=== PATIENT | female | born 1995 | race Two or more races ===

== ENCOUNTER 2016-12-01 10:18 | Emergency (ER) | payer OTHER ==
[~2016-12-01 10:18] MED LIST: /ADVA50050 IN; ALBUTEROL INFIL; EXTR500C4 PO; FLON0.05; MOTR200T44 PO; PRENTAB40 PO; SINGULAR PO
--- NOTE | 2016-12-01 11:36 | EDDOCDS ---
Nurse's Notes [facility] Name: April Miller Age: 21 yrs Sex: Female : 1995 Arrival Date: 12/01/2016 Time: 10:18 Bed Triage 3 Private MD: NO PRIMARY PHYSICIAN, . Diagnosis: Dental caries on pit and fissure surface penetrating into pulp;Dental caries on smooth surface penetrating into pulp;Dental root caries Presentation: 12/01 10:28 Presenting complaint: Patient states: that she has severe tooth decay and her fillings ms18 are falling out. Pt reports R sided mouth pain. Pt also states that she has an appointment with the dentist on 12/05/2016. Adult Sepsis Screening: The patient does not have new or worsening altered mentation. Patient's respiratory rate is less than 22. Systolic blood pressure is greater than 100. Patient has a qSOFA score of 0- Negative Sepsis Screen. Suicide/Homicide risk assessment- the patient denies having any suicidal and/or homicidal ideations and does not present with any other emotional, behavioral or mental health complaints. Status: Patient is not a mechanic field service or dependent. Transition of care: patient was not received from another setting of care. 10:28 Acuity: BENJIE Level 5 ms18 10:28 Method Of Arrival: Walkin/Carried/Asstd ms18 Triage Assessment: 10:30 General: Appears in no apparent distress, uncomfortable, Behavior is appropriate for ms18 age, cooperative, crying. Pain: Location: mouth. Pain: Pain currently is 10 out of 10 on a pain scale. HIV screening NA for this visit Offered previously. Neurological: No deficits noted. EENT: Poor dentition noted. Reports pain in mouth. Respiratory: No deficits noted. Derm: Skin is pink, warm & dry. normal. DOPER: 10:30 LMP 11/24/2016 ms18 Historical: - Allergies: no known allergies; - Home Meds: 1. albuterol sulfate 90 mcg/actuation Inhl aepb 2 puffs every 4 hours 2. Tylenol 325 mg Oral tab 1 tab every 4-6 hours 3. ibuprofen 200 mg oral tab 2 tabs as needed - PMHx: Asthma; Dental caries; - PSHx: none; - Social history: Smoking status: Patient uses tobacco products, current every day smoker. No barriers to communication noted, The patient speaks fluent Pashto. - Family history: Not pertinent. - : The pt / caregiver states he / she is not on anticoagulants. Home medication list is obtained from the patient. - Exposure Risk Screening:: None identified. Screenin:33 Screening information is obtained from the patient. Fall risk: No risks identified. ttb Assistance ADL's: requires no assistance with activities of daily living. Abuse/DV Screen: The patient / caregiver reports he/she is: not in a situation that causes fear, pain or injury. Nutritional screening: No deficits noted. Advance Directives: Currently, there is no health care proxy. home support is adequate. Assessment: 11:33 General: Appears uncomfortable, well nourished, Behavior is appropriate for age, ttb cooperative, pleasant. Neurological: Level of Consciousness is awake, alert. EENT: poor dentition . Cardiovascular: Chest pain is denied. Respiratory: No deficits noted. Airway is patent Denies cough, shortness of breath. Derm: Skin is normal. Vital Signs: 10:20 BP 127 / 83; Pulse 80; Resp 18; Temp 97.4; Pulse Ox 100% ; Weight 48.08 kg; Height 5 elp ft. 1 in. (154.94 cm); Pain 10/10; 10:20 Body Mass Index 20.03 (48.08 kg, 154.94 cm) [facility] Vitals: 10:20 Log In Time: December 01, 2016 at 10:18. [facility] ED Course: 10:19 Patient visited by Radha Kelley PCA. elp 10:19 Patient moved to Waiting elp 10:20 NO PRIMARY PHYSICIAN, . is Private Physician. elp 10:21 Patient visited by Radha Kelley PCA. elp 10:21 Patient moved to Pre RCE elp 10:29 Triage Initiated ms18 11:14 Patient moved to Triage 3 ttb 11:15 Patient visited by Crystal Dixon PCA. jb5 11:21 Steven Chávez PA is PHCP. btw 11:21 Miguel Greenfield MD is Attending Physician. btw 11:21 Patient visited by Steven Chávez PA. btw 11:26 Your, Dentist is Referral Physician. btw 11:33 The patient / caregiver is instructed regarding the plan of care and ED course. Patient ttb has correct armband on for positive identification. 11:33 No IV's were initiated during this patient's visit. No procedures done that require ttb assistance. Order Results: There are currently no results for this order. Outcome: 11:26 Discharge ordered by Provider. btw 11:33 Discharge Assessment: Patient awake, alert and oriented x 3. No cognitive and/or ttb functional deficits noted. Patient verbalized understanding of disposition instructions. Patient awake and alert. patient administered narcotics - no. The following High Risk Discharge criteria are identified: None. Discharged to home ambulatory. Condition: good Condition: stable. Discharge instructions given to patient, Instructed on discharge instructions, follow up and referral plans. medication usage, no driving heavy equipment, no drinking with medication, Demonstrated understanding of instructions, medications, dental care Pt was receptive of discharge instructions/ teaching. Prescriptions given X 3, Work note provided to patient. No special radiology studies were completed. Property :Personal belongings accompany Pt. 11:35 Patient left the ED. ttb Signatures: Crystal Dixon, HAND MICA PLATE LAYER HAND MICA PLATE LAYER jb5 Steven Chávez PA PA btRosa Miller, RN RN ttb Radha Kelley, HAND MICA PLATE LAYER HAND MICA PLATE LAYER Krystal GerberRN RN ms18 MTDJacinda
--- NOTE | 2016-12-01 11:36 | EDDOCDS ---
Physician Documentation [facility] Name: April Miller Age: 21 yrs Sex: Female : 1995 Arrival Date: 12/01/2016 Time: 10:18 Bed Triage 3 Private MD: NO PRIMARY PHYSICIAN, . Disposition: 12/01 11:31 A printed prescription was provided to the patient due to temporary technical issues btw which prevented electronic transmission. Disposition: 12/01/16 11:26 Discharged to Home/Self Care. Impression: Dental caries on pit and fissure surface penetrating into pulp, Dental caries on smooth surface penetrating into pulp, Dental root caries. - Condition is Stable. - Discharge Instructions: Dental Pain, Mhol-fi-[id number], Diet and Dental Disease. - Prescriptions for Clindamycin HCl 300 mg Oral Capsule - take 1 capsule by ORAL route every 6 hours; 40 capsule. Ultram 50 mg Oral Tablet - take 1 tablet by ORAL route every 6 hours As needed MDD: 4 tabs; 20 tablet. etodolac 200 mg Oral Capsule - take 1 capsule by ORAL route 3 times per day; 30 capsule. - Medication Reconciliation, Local Pharmacy Hours, Work Release Form - 1 day form. - Follow up: Your, Dentist; When: As previously arranged; Reason: Further diagnostic work-up, Recheck today's complaints, Continuance of care. - Problem is chronic. - Symptoms are unchanged. Historical: - Allergies: no known allergies; - Home Meds: 1. albuterol sulfate 90 mcg/actuation Inhl aepb 2 puffs every 4 hours 2. Tylenol 325 mg Oral tab 1 tab every 4-6 hours 3. ibuprofen 200 mg oral tab 2 tabs as needed - PMHx: Asthma; Dental caries; - PSHx: none; - Social history: Smoking status: Patient uses tobacco products, current every day smoker. No barriers to communication noted, The patient speaks fluent Singaporean. - Family history: Not pertinent. - : The pt / caregiver states he / she is not on anticoagulants. Home medication list is obtained from the patient. - Exposure Risk Screening:: None identified. 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 1 in. (154.94 cm); Pain 1010; 10:20 Body Mass Index 20.03 (48.08 kg, 154.94 cm) elp Signatures: Steven Chávez PA PA btw Conner, Teresa RN RN ttb Krystal Butler RN RN ms18 MTDD
--- NOTE | 2016-12-03 12:36 | EDDOCDS ---
Physician Documentation [facility] Name: April Miller Age: 21 yrs Sex: Female : 1995 Arrival Date: 12/01/2016 Time: 10:18 Bed Triage 3 Private MD: NO PRIMARY PHYSICIAN, . Disposition: 12/01 11:31 A printed prescription was provided to the patient due to temporary technical issues btw which prevented electronic transmission. Disposition: 12/01/16 11:26 Discharged to Home/Self Care. Impression: Dental caries on pit and fissure surface penetrating into pulp, Dental caries on smooth surface penetrating into pulp, Dental root caries. - Condition is Stable. - Discharge Instructions: Dental Pain, [id number], Diet and Dental Disease. - Prescriptions for Clindamycin HCl 300 mg Oral Capsule - take 1 capsule by ORAL route every 6 hours; 40 capsule. Ultram 50 mg Oral Tablet - take 1 tablet by ORAL route every 6 hours As needed MDD: 4 tabs; 20 tablet. etodolac 200 mg Oral Capsule - take 1 capsule by ORAL route 3 times per day; 30 capsule. - Medication Reconciliation, Local Pharmacy Hours, Work Release Form - 1 day form. - Follow up: Your, Dentist; When: As previously arranged; Reason: Further diagnostic work-up, Recheck today's complaints, Continuance of care. - Problem is chronic. - Symptoms are unchanged. Historical: - Allergies: no known allergies; - Home Meds: 1. albuterol sulfate 90 mcg/actuation Inhl aepb 2 puffs every 4 hours 2. Tylenol 325 mg Oral tab 1 tab every 4-6 hours 3. ibuprofen 200 mg oral tab 2 tabs as needed - PMHx: Asthma; Dental caries; - PSHx: none; - Social history: Smoking status: Patient uses tobacco products, current every day smoker. No barriers to communication noted, The patient speaks fluent East Timorese. - Family history: Not pertinent. - : The pt / caregiver states he / she is not on anticoagulants. Home medication list is obtained from the patient. - Exposure Risk Screening:: None identified. 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 1 in. (154.94 cm); Pain 10/10; 10:20 Body Mass Index 20.03 (48.08 kg, 154.94 cm) elp MDM: 11:38 Financial registration complete. mm15 11:39 [facility] Payment Agreement was scanned into [employer] and attached to record. mm15 15:16 T-Sheet-- Draft Copy was scanned into [employer] and attached to record. gb Signatures: Apple Chiu, Reg Reg gb Steven Chávez PA PA btw Conner, Teresa, RN RN ttb Angel Matthews mm15 Krystal Butler RN RN ms18 The chart was reviewed and I authenticate all verbal orders and agree with the evaluation and treatment provided.Attachments: 11:39 [facility] Payment Agreement mm15 15:16 T-Sheet-- Draft Copy gb Chart Complete MTDD
--- NOTE | 2016-12-03 12:36 | EDDOCDS ---
Nurse's Notes [facility] Name: April Miller Age: 21 yrs Sex: Female : 1995 Arrival Date: 12/01/2016 Time: 10:18 Bed Triage 3 Private MD: NO PRIMARY PHYSICIAN, . Diagnosis: Dental caries on pit and fissure surface penetrating into pulp;Dental caries on smooth surface penetrating into pulp;Dental root caries Presentation: 12/01 10:28 Presenting complaint: Patient states: that she has severe tooth decay and her fillings ms18 are falling out. Pt reports R sided mouth pain. Pt also states that she has an appointment with the dentist on 12/05/2016. Adult Sepsis Screening: The patient does not have new or worsening altered mentation. Patient's respiratory rate is less than 22. Systolic blood pressure is greater than 100. Patient has a qSOFA score of 0- Negative Sepsis Screen. Suicide/Homicide risk assessment- the patient denies having any suicidal and/or homicidal ideations and does not present with any other emotional, behavioral or mental health complaints. Status: Patient is not a environmental services associate or dependent. Transition of care: patient was not received from another setting of care. 10:28 Acuity: BENJIE Level 5 ms18 10:28 Method Of Arrival: Walkin/Carried/Asstd ms18 Triage Assessment: 10:30 General: Appears in no apparent distress, uncomfortable, Behavior is appropriate for ms18 age, cooperative, crying. Pain: Location: mouth. Pain: Pain currently is 10 out of 10 on a pain scale. HIV screening NA for this visit Offered previously. Neurological: No deficits noted. EENT: Poor dentition noted. Reports pain in mouth. Respiratory: No deficits noted. Derm: Skin is pink, warm & dry. normal. 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 albuterol sulfate 90 mcg/actuation Inhl aepb 2 puffs every 4 hours 2. Tylenol 325 mg Oral tab 1 tab every 4-6 hours 3. ibuprofen 200 mg oral tab 2 tabs as needed - PMHx: Asthma; Dental caries; - PSHx: none; - Social history: Smoking status: Patient uses tobacco products, current every day smoker. No barriers to communication noted, The patient speaks fluent Belarusian. - Family history: Not pertinent. - : The pt / caregiver states he / she is not on anticoagulants. Home medication list is obtained from the patient. - Exposure Risk Screening:: None identified. Screenin:33 Screening information is obtained from the patient. Fall risk: No risks identified. ttb Assistance ADL's: requires no assistance with activities of daily living. Abuse/DV Screen: The patient / caregiver reports he/she is: not in a situation that causes fear, pain or injury. Nutritional screening: No deficits noted. Advance Directives: Currently, there is no health care proxy. home support is adequate. Assessment: 11:33 General: Appears uncomfortable, well nourished, Behavior is appropriate for age, ttb cooperative, pleasant. Neurological: Level of Consciousness is awake, alert. EENT: poor dentition . Cardiovascular: Chest pain is denied. Respiratory: No deficits noted. Airway is patent Denies cough, shortness of breath. Derm: Skin is normal. Vital Signs: 10:20 BP 127 / 83; Pulse 80; Resp 18; Temp 97.4; Pulse Ox 100% ; Weight 48.08 kg; Height 5 elp ft. 1 in. (154.94 cm); Pain 10/10; 10:20 Body Mass Index 20.03 (48.08 kg, 154.94 cm) [facility] Vitals: 10:20 Log In Time: December 01, 2016 at 10:18. [facility] ED Course: 10:19 Patient visited by Radha Kelley PCA. elp 10:19 Patient moved to Waiting elp 10:20 NO PRIMARY PHYSICIAN, . is Private Physician. elp 10:21 Patient visited by Radha Kelley PCA. elp 10:21 Patient moved to Pre RCE elp 10:29 Triage Initiated ms18 11:14 Patient moved to Triage 3 ttb 11:15 Patient visited by Crystal Dixon PCA. jb5 11:21 Steven Chávez PA is PHCP. btw 11:21 Miguel Greenfield MD is Attending Physician. btw 11:21 Patient visited by Steven Chávez PA. btw 11:26 Your, Dentist is Referral Physician. btw 11:33 The patient / caregiver is instructed regarding the plan of care and ED course. Patient ttb has correct armband on for positive identification. 11:33 No IV's were initiated during this patient's visit. No procedures done that require ttb assistance. 11:39 [facility] Payment Agreement was scanned into [employer] and attached to record. mm15 15:16 T-Sheet-- Draft Copy was scanned into [employer] and attached to record. gb Order Results: There are currently no results for this order. Outcome: 11:26 Discharge ordered by Provider. btw 11:33 Discharge Assessment: Patient awake, alert and oriented x 3. No cognitive and/or ttb functional deficits noted. Patient verbalized understanding of disposition instructions. Patient awake and alert. patient administered narcotics - no. The following High Risk Discharge criteria are identified: None. Discharged to home ambulatory. Condition: good Condition: stable. Discharge instructions given to patient, Instructed on discharge instructions, follow up and referral plans. medication usage, no driving heavy equipment, no drinking with medication, Demonstrated understanding of instructions, medications, dental care Pt was receptive of discharge instructions/ teaching. Prescriptions given X 3, Work note provided to patient. No special radiology studies were completed. Property :Personal belongings accompany Pt. 11:35 Patient left the ED. ttb Signatures: Apple Chiu, Reg Reg gb Crystal Dixon, GUEST REQUEST RUNNER GUEST REQUEST RUNNER jb5 Steven Chávez PA PA Rosa Mo, RN RN ttb Angel Matthews mm15 Radha Kelley, GUEST REQUEST RUNNER GUEST REQUEST RUNNER Krystal Gerber RN RN ms18 Chart Complete MTDD
--- NOTE | 2016-12-03 12:36 | EDDOCDS ---
Physician Documentation [facility] Name: April Miller Age: 21 yrs Sex: Female : 1995 Arrival Date: 12/01/2016 Time: 10:18 Bed Triage 3 Private MD: NO PRIMARY PHYSICIAN, . Disposition: 12/01 11:31 A printed prescription was provided to the patient due to temporary technical issues btw which prevented electronic transmission. Disposition: 12/01/16 11:26 Discharged to Home/Self Care. Impression: Dental caries on pit and fissure surface penetrating into pulp, Dental caries on smooth surface penetrating into pulp, Dental root caries. - Condition is Stable. - Discharge Instructions: Dental Pain, Latp-aj-Odus, Diet and Dental Disease. - Prescriptions for Clindamycin HCl 300 mg Oral Capsule - take 1 capsule by ORAL route every 6 hours; 40 capsule. Ultram 50 mg Oral Tablet - take 1 tablet by ORAL route every 6 hours As needed MDD: 4 tabs; 20 tablet. etodolac 200 mg Oral Capsule - take 1 capsule by ORAL route 3 times per day; 30 capsule. - Medication Reconciliation, Local Pharmacy Hours, Work Release Form - 1 day form. - Follow up: Your, Dentist; When: As previously arranged; Reason: Further diagnostic work-up, Recheck today's complaints, Continuance of care. - Problem is chronic. - Symptoms are unchanged. Historical: - Allergies: no known allergies; - Home Meds: 1. albuterol sulfate 90 mcg/actuation Inhl aepb 2 puffs every 4 hours 2. Tylenol 325 mg Oral tab 1 tab every 4-6 hours 3. ibuprofen 200 mg oral tab 2 tabs as needed - PMHx: Asthma; Dental caries; - PSHx: none; - Social history: Smoking status: Patient uses tobacco products, current every day smoker. No barriers to communication noted, The patient speaks fluent Israeli. - Family history: Not pertinent. - : The pt / caregiver states he / she is not on anticoagulants. Home medication list is obtained from the patient. - Exposure Risk Screening:: None identified. 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 1 in. (154.94 cm); Pain 10/10; 10:20 Body Mass Index 20.03 (48.08 kg, 154.94 cm) elp MDM: 11:38 Financial registration complete. mm15 11:39 [facility] Payment Agreement was scanned into [employer] and attached to record. mm15 15:16 T-Sheet-- Draft Copy was scanned into [employer] and attached to record. gb Signatures: Apple Chiu, Reg Reg gb Steven Chávez PA PA btw Conner, Teresa, RN RN ttb Angel Matthews mm15 Krystal Butler RN RN ms18 The chart was reviewed and I authenticate all verbal orders and agree with the evaluation and treatment provided.Attachments: 11:39 [facility] Payment Agreement mm15 15:16 T-Sheet-- Draft Copy gb Chart Complete MTDD
== END 2016-12-01 11:35 | disposition home or self-care (01) ==
LOC: M ED 10:18
DX: K02.9 Dental caries, unspecified (principal); J45.909 Unspecified asthma, uncomplicated; F17.210 Nicotine dependence, cigarettes, uncomplicated; Z79.51 Long term (current) use of inhaled steroids

== ENCOUNTER → 2018-05-10 | Outpatient (CLI) | payer OTHER | LOC: M RAD 15:14 | DX: N83.11 Corpus luteum cyst of right ovary (principal); Z3A.09 9 weeks gestation of pregnancy | CPT/HCPCS: 76801 ==

== ENCOUNTER 2018-05-20 14:00 | Emergency (ER) | payer OTHER | END 2018-05-20 18:38 | disposition home or self-care (01) | LOC: M ED 14:00 | DX: K04.7 Periapical abscess without sinus (principal); F17.210 Nicotine dependence, cigarettes, uncomplicated | CPT/HCPCS: 99283 ==

== ENCOUNTER 2018-06-25 02:28 | Emergency (ER) | payer OTHER ==
[2018-06-25] MEDS: IPRATROPIUM 0.5MG/ALBUTEROL 2.5MG INH SOL UD 3ML (DUONEB)(J7620) NEB (02:58)
[2018-06-25] MEDS: methylPREDNISolone INJ 125 MG/2 ML VIAL (J2930) IM (03:10)
[2018-06-25] MEDS: predniSONE 20 MG TAB PO (03:22)
== END 2018-06-25 03:35 | disposition left against medical advice (07) ==
LOC: M ED 02:28
DX: J40 Bronchitis, not specified as acute or chronic (principal); J45.909 Unspecified asthma, uncomplicated; F41.9 Anxiety disorder, unspecified; D57.3 Sickle-cell trait; F17.210 Nicotine dependence, cigarettes, uncomplicated
CPT/HCPCS: 71045

== ENCOUNTER 2018-08-05 14:29 | Emergency (ER) | payer OTHER ==
[2018-08-05] MEDS: LIDOCAINE VISCOUS 2% SOLN 15ML UDC MT (16:24)
[2018-08-05] MEDS: CLINDAMYCIN 150 MG CAP PO (16:24)
[2018-08-05] MEDS: NORCO, ANEXSIA 5/325MG TABLET (HYDROcodone/ACETAMINOPHEN) PO (16:25)
== END 2018-08-05 16:31 | disposition home or self-care (01) ==
LOC: M ED 14:29
DX: K04.7 Periapical abscess without sinus (principal); K02.9 Dental caries, unspecified; D57.3 Sickle-cell trait; F41.9 Anxiety disorder, unspecified; J45.909 Unspecified asthma, uncomplicated; R56.9 Unspecified convulsions; Z79.899 Other long term (current) drug therapy
CPT/HCPCS: 99283

== ENCOUNTER 2018-12-12 12:50 | Emergency (ER) | payer OTHER ==
[~2018-12-12] VITALS: Ht 154.9 cm; Wt 47.7 kg
[~2018-12-12 12:50] MED LIST changes: +ALBU0.63 NEB; +ALBU83IN INH; +ALPR1TAB3; +APAP/CODEINE; +CLEO300C2 PO; +FLUO20CA19; +KETO10TAB PO; +LIDVISCBTL SSP; +NORCOTAB PO; +PRED20TA PO; +XANA1TAB2 PO
[2018-12-12 12:51] VITALS: BP 107/64
[2018-12-12] MEDS ORDERED: CLEO300C2 PO (13:11)
[2018-12-12] MEDS ORDERED: IBUP-1022 PO (13:11)
== END 2018-12-12 13:11 | disposition left against medical advice (07) ==
LOC: M ED 12:50
DX: K04.7 Periapical abscess without sinus (principal); J45.909 Unspecified asthma, uncomplicated; R56.9 Unspecified convulsions; F41.9 Anxiety disorder, unspecified; D57.3 Sickle-cell trait

== ENCOUNTER → 2018-12-19 | Outpatient (CLI) | payer OTHER ==
[~2018-12-19] MED LIST changes: +IBUP-1022 PO
--- NOTE | 2018-12-19 15:14 | REP ---
OB ULTRASOUND: 12/19/2018. Clinical history: Supervision of . Dates unknown. Findings: There is a single intrauterine gestation in variable position. Cervix is 4.4 cm long and closed. There is a fundal grade 0 placenta without previa or abruption. Amniotic fluid appears visually within normal limits. biometry: BPD 4.3 cm = 18 weeks 6 days HC 16.2 cm = 19 weeks AC 13.6 cm = 19 weeks FL 3.1 cm = 19 weeks 4 days HL 3 cm = 19 weeks 5 days This gives average ultrasound age of 19 weeks 2 days with EDC 05/13/2019. Measurement ratios are all in the normal range. Estimated weight 282 grams or 9 ounces, is 46th percentile for this dating. Anatomy screen shows a heart rate 147 and regular. Cranial vault, lateral ventricles, choroid plexus, thalami, cavum septum pellucidum, cerebellum, cisterna magna, face and profile views, lungs and the four-chamber view were unremarkable. Ventricular outflow tracts are not optimally visualized. diaphragm, left-sided stomach bubble, cord insertion, three-vessel cord, kidneys, bladder, upper and lower extremities were all unremarkable. The spine is not imaged completely in both planes. This is due to variable position. Incidentally noted is a echogenic focus in the left ovary which measures 1.7 x 1.5 cm. May be a hemorrhagic follicle. Impression: 1. Single intrauterine gestation at 19 weeks 2 days by composite criteria giving EDC 05/13/2019. 2. Estimated weight 282 grams or 9 ounces is 46th percentile. Measurement ratios are normal range. 3. Variable position, closed 4.4 cm cervix, visually normal amniotic fluid volume and a fundal grade 0 placenta without previa abruption. 4. No visible anomalies. However, the ventricular outflow tracts and spine were not completely visualized because of variable position. This may be rechecked later in the second trimester. Electronically Signed by Yovani Jaramillo MD 12/19/2018 07:34 P
== END ==
LOC: M RAD 13:45
PROVIDERS: ATTEND Nurse Practitioner Family
DX: Z36.89 Encounter for other specified antenatal screening (principal); Z3A.19 19 weeks gestation of pregnancy

== ENCOUNTER 2019-08-20 18:41 | Emergency (ER) | payer OTHER ==
[~2019-08-20] VITALS: Ht 154.9 cm; Wt 46.2 kg
[2019-08-20 18:41] VITALS: BP 162/95
[~2019-08-20 18:41] MED LIST changes: -/ADVA50050 IN; +ADVA1AER2 IN; +HYDR-3715 PO; -NORCOTAB PO
== END 2019-08-20 23:16 | disposition left against medical advice (07) ==
LOC: M ED 18:41
DX: Z53.21 Procedure and treatment not carried out due to patient leaving prior to being seen by health care provider (principal)

== ENCOUNTER 2020-04-07 14:50 | Emergency (ER) | payer OTHER ==
[~2020-04-07] VITALS: Ht 154.9 cm; Wt 57.3 kg
[~2020-04-07 14:50] MED LIST changes: -FLUO20CA19; +FLUO20CA22
[2020-04-07] MEDS ORDERED: KETOROLAC TROMETHAMINE 10 MG TAB PO ONE (15:30)
--- NOTE | 2020-04-07 16:57 | REP ---
LEFT ELBOW, FOUR VIEWS: Four views left elbow performed. There is a nondisplaced fracture of the neck of the radius. No other acute fracture or dislocation is seen. There is a joint effusion. Electronically Signed by Isac Higgins MD 04/08/2020 11:51 A
--- NOTE | 2020-04-07 17:00 | REP ---
LEFT FOREARM, TWO VIEWS: Two views left forearm performed. There is a nondisplaced fracture of the neck of the radius. No other acute fracture or dislocation is seen. Electronically Signed by Isac Higgins MD 04/08/2020 11:52 A
[2020-04-07 17:09] VITALS: BP 123/71
--- NOTE | 2020-04-07 18:11 | CR ---
DATE OF CONSULTATION: 04/07/2020 CHIEF COMPLAINT: Left elbow pain. The patient states she was walking home from her mother's when she had a trip and fall landing onto her elbow. She immediately appreciated severe pain and swelling. The pain is made worse with any sort of range of motion and improved with immobilization and pain medication. It is 10/10. It is a constant dull ache with intermittent sharp pain. Denies any fevers, chills, nausea, vomiting, or pain elsewhere. Complete 10-system review was conducted. Pertinent positives and negatives as stated in the history of present illness (HPI). All other systems negative. PAST MEDICAL HISTORY: Positive only for asthma. PAST SURGICAL HISTORY: No past surgical history. The patient is not currently on any medications. ALLERGIES: CODEINE. PHYSICAL EXAMINATION: The patient is awake, alert, oriented, well-dressed, appropriate affect, breathing normally in room air. Normocephalic, atraumatic. Left upper extremity: Globally tender to palpation with significant swelling. Skin is intact. Radial pulse 2+ regular rate. Positive anterior interosseous nerve (AIN), posterior interosseous nerve (PIN), and ulnar motor functions. Sensation intact to light touch, superficial sensory branches of the radial nerve, median nerve, and ulnar nerve. Due to significant pain, the patient did not want to range the elbow. IMAGING: Review of the elbow and forearm x-rays demonstrating a minimally displaced radial head and neck fracture. I discussed with the patient that at this point in time it is virtually nondisplaced. Therefore, I expect this to be treated nonoperatively. I do not see the need to do a lidocaine block. Given the amount of displacement, there is almost no way that there would be a mechanical block for this radial head fracture. Therefore, she will be placed in a long arm splint per the emergency room (ER) staff. I will see her back in the next few days or early next week. We will remove the splint and place her in a sling for pain and start her in physical therapy with range of motion. The patient expressed understanding and agreement with that plan. She will be nonweightbearing on the left upper extremity.
== END 2020-04-07 17:10 | disposition home or self-care (01) ==
LOC: EDBD 14:50 → M ED 14:50
DX: S52.135A Nondisplaced fracture of neck of left radius, initial encounter for closed fracture (principal); W01.0XXA Fall on same level from slipping, tripping and stumbling without subsequent striking against object, initial encounter; Y92.480 Sidewalk as the place of occurrence of the external cause; Y93.9 Activity, unspecified; Y99.9 Unspecified external cause status; R56.9 Unspecified convulsions; J45.909 Unspecified asthma, uncomplicated; F41.9 Anxiety disorder, unspecified; F32.9 Major depressive disorder, single episode, unspecified; F17.200 Nicotine dependence, unspecified, uncomplicated; F12.10 Cannabis abuse, uncomplicated; Z88.5 Allergy status to narcotic agent

== ENCOUNTER → 2020-09-16 | Outpatient (CLI) | payer OTHER ==
--- NOTE | 2020-09-18 07:08 | REP ---
INDICATION: GESTATIONAL DATING COMPARISON: None. TECHNIQUE: Transabdominal and transvaginal 1st trimester obstetrical ultrasound with color Doppler evaluation. FINDINGS: A somewhat irregular elongated gestational sac is appreciated with yolk sac and pole. CRL measures 5 mm corresponding to 6 weeks 1 day gestational age with estimated date of delivery 05/11/2021. heart rate equals 98 beats per minute. Two adjacent hyperechoic rounded structures are appreciated measuring 5 x 8 x 5 mm and 10 x 6 x 10 mm which may represent small adjacent hematomas ("chorionic bumps"). IMPRESSION: 1. Somewhat irregular appearing gestational sac with suspected adjacent chorionic bumps. Correlation with serial HCG levels and repeat ultrasound may be warranted. 2. CR measurements suggest early fetus at 6 weeks 1 day gestational age. <Electronically signed by Jasper Randall > 09/18/20 0709
== END ==
LOC: M RAD 16:08
PROVIDERS: ATTEND Physician Assistant Medical
DX: Z32.01 Encounter for pregnancy test, result positive (principal)

== ENCOUNTER 2020-11-14 18:13 | Emergency (ER) | payer OTHER ==
[~2020-11-14] VITALS: Ht 154.9 cm; Wt 47.7 kg
[2020-11-14 18:39] LABS: BASO % 0.3 % (0.0-1.0); EOS # 0.1 10^3/uL (0.0-0.5); EOS % 2.3 % (0.0-3.0); HEMATOCRIT 39.5 % (36.0-47.0); HEMOGLOBIN 12.2 g/dl (12.0-15.5); LYMPH # 1.6 10^3/uL (1.5-5.0); LYMPH % 25.7 % (24.0-44.0); MEAN CORPUSCULAR HEMOGLOBIN 28.3 pg (27.0-33.0); MEAN CORPUSCULAR HGB CONC 30.9 g/dl (32.0-36.5); MEAN CORPUSCULAR VOLUME 91.6 fl (80.0-96.0); MONO # 0.4 10^3/uL (0.0-0.8); MONO % 6.9 % (0.0-5.0); NEUTROPHILS # 3.9 10^3/uL (1.5-8.5); NEUTROPHILS % 64.1 % (36.0-66.0); PLATELET COUNT, AUTOMATED 339 10^3/uL (150-450); RED BLOOD COUNT 4.31 10^6/uL (4.00-5.40); WHITE BLOOD COUNT 6.1 10^3/uL (4.0-10.0)
[2020-11-14 19:04] LABS: BLOOD UREA NITROGEN 4 MG/DL (7-18); CALCIUM LEVEL 8.8 MG/DL (8.5-10.1); CARBON DIOXIDE LEVEL 21 MEQ/L (21-32); CHLORIDE LEVEL 112 MEQ/L (98-107); CREATININE FOR GFR 0.81 MG/DL (0.55-1.30); GLOMERULAR FILTRATION RATE > 60.0 (>60); GLUCOSE, FASTING 102 MG/DL (70-100); POTASSIUM SERUM 4.4 MEQ/L (3.5-5.1); SODIUM LEVEL 143 MEQ/L (136-145)
[2020-11-14 19:54] LABS: ACETAMINOPHEN LEVEL < 2.0 UG/ML (10.0-30.0); ALBUMIN 3.3 GM/DL (3.2-5.2); ALT/SGPT 14 U/L (12-78); BILIRUBIN,DIRECT < 0.1 MG/DL (0.0-0.2); BILIRUBIN,TOTAL 0.2 MG/DL (0.2-1.0); ETHYL ALCOHOL (ETHANOL) < 0.003 % (0.000-0.010); MAGNESIUM LEVEL 1.8 MG/DL (1.8-2.4); SALICYLATE LEVEL 3.9 MG/DL (5.0-30.0); THYROID STIMULATING HORMONE 0.591 uIU/ML (0.358-3.740); TOTAL PROTEIN 6.6 GM/DL (6.4-8.2)
--- NOTE | 2020-11-14 19:54 | REP ---
INDICATION: Altered Mental Status. COMPARISON: 06/17/2018. TECHNIQUE: SINGLE PORTABLE AP VIEW OF THE CHEST WAS PERFORMED. FINDINGS: THERE IS NO ACUTE INFILTRATE OR PULMONARY EDEMA. LUNGS ARE CLEAR. HEART IS NOT SIGNIFICANTLY ENLARGED. MEDIASTINAL SILHOUETTE IS UNREMARKABLE. THE VISUALIZED OSSEOUS STRUCTURES ARE INTACT. IMPRESSION: NO ACUTE PULMONARY DISEASE. <Electronically signed by Isac Higgins > 11/14/20 1950
--- OUTSIDE RECORDS SUMMARY | 2020-11-14 19:55 | CCD | Continuity of Care Document ---
Author Author [facility] Organization [facility] Address [address] [place] [address] Phone Care Team Providers Care Management Retail Intern Name Role Phone Mitch SUPERVISOR HISTOLOGY SUPERVISOR HISTOLOGYMarah Unavailable Unavailable Allergies, Adverse Reactions, Alerts Substance Reaction Status Criticality No Known Allergies Active No Information Medications Medication Instructions Dosage Effective Dates (start - stop) Sta tus Comments ibuprofen 800 mg tablet 1 tab po every 8 hours prn Aug - Active Xulane 150 mcg-35 mcg/24 hr transdermal patch Xulane 1 patch per week x 3 weeks then remove x 1 week - Active ondansetron HCl 4 mg tablet 1 tab po every 4 hours prn (#4) - Active acetaminophen 300 mg-codeine 30 mg tablet 1-2 tabs po every 4 ho urs prn pain - Active ALBUTEROL INHALER 90mcg/inh INHALATION SPRAY MD - Active Vicodin 5 mg-300 mg tablet take 1 tablet by oral route every 4 - 6 hours as needed for pain - Active acetaminophen 300 mg-codeine 30 mg tablet 1-2 tabs po every 4 ho urs prn pain - No Longer Active Mifeprex 200 mg tablet 1 po administer to pt in clinic - No Longer Active misoprostol 200 mcg tablet 4 tabs buccally 24-48 hrs after mifep ristone (#4) - No Longer Active ALBUTEROL INHALER 90mcg/inh INHALATION SPRAY MD - No Longer Active Problems Condition Effective Dates (start - stop) Clinical Status C omments Encounter for test, result positive Encounter for elective termination of Enctr for init prescription of patch hormonal contracep dev Other sex counseling Encounter for test, result positive Encntr screen for infections w sexl mode of transmiss Other sex counseling Encounter for ot general cnsl and advice on contraception Other sex counseling Encounter for oth general cnsl and advice on contraception Encounter for initial prescription of contraceptive pills Encounter for test, result positive High risk heterosexual behavior Other sex counseling Encounter for oth general cnsl and advice on contraception Encounter for elective termination of Incomplete and partial hydatidiform mole Encounter for elective termination of Encounter for test, result positive Encntr screen for infections w sexl mode of transmiss High risk heterosexual behavior Encounter for oth general cnsl and advice on contraception Encounter for initial prescription of contraceptive pills Encounter for elective termination of Encounter for test, result positive Encounter for other preprocedural examination Encntr screen for infections w sexl mode of transmiss High risk heterosexual behavior Encounter for initial prescription of contraceptive pills Encounter for elective termination of Encounter for test, result positive Encounter for other preprocedural examination Encounter for ot general cnsl and advice on contraception Anemia, unspecified Encounter for initial prescription of contraceptive pills Encounter for test, result positive Encntr screen for infections w sexl mode of transmiss High risk heterosexual behavior PT, Negative PT, Positive RhD positive - Active Procedures Procedure Date No Information Results Test Name Date and Time Measure Units Reference Range Abnormal Flag St atus Comments No Information Advance Directives Directive Yes / No Effective Date File Name No Information Encounters Encounter Description Practice Location Reason(s) For Visit Diagnose s Date Provider Providers Copied on Encounter [facility], [address] [place] [address], [id number], [place] tel:[phone] [facility] Encounter for pregn kaylene test, result positiveEncounter for elective termination of pregnancyEnctr for init prescription of patch hormonal contracep devOther sex counseling Mitch Crystal. [address] [place] [address], [id number], [place]. tel:[phone] Referring Provider: Marah Jett, [address] [place] [address], [id number]. tel:[phone] [facility] [place], [address] [place] [address], [id number], [place] tel:[phone] [facility] [place] No Information Jacinda Gee. [address] [place] [address], [id number], . tel:[phone] [facility] [place], [address] [place] [address], [id number], [place] tel:[phone] [facility] Encounter for pregn kaylene test, result positiveEncntr screen for infections w sexl mode of transmissOther sex counselingEncounter for oth general cnsl and advice on contraception Christine Tyler. [address] [place] [address], [id number], [place]. tel:[phone] Referring Provider: Nayeli King, [address] [place] [address], [id number]. tel:[phone] [facility] [place], [address] [place] [address], [id number], [place] tel:[phone] [facility] [place] Other sex counselin gEncounter for oth general cnsl and advice on contraceptionEncounter for initial prescription of contraceptive pills Magdiel Kulkarni. [address] [place] [address], [id number], [place]. tel:[phone] Referring Provider: Cayla Veloz, [address] [place] [address], [id number]. tel:[phone] [facility] [place], [address] [place] [address], [id number], [place] tel:[phone] [facility] Encounter for pregn kaylene test, result positiveHigh risk heterosexual behaviorOther sex counselingEncounter for oth general cnsl and advice on contraception Magdiel swift [address] [place] [address], [id number], [place]. tel:[phone] Referring Provider: Cayla Veloz, [address] [place] [address], [id number]. tel:[phone] [facility], [address] [place] [address], [id number], [place] tel:[phone] [facility] [place] Encounter for elect zachary termination of pregnancyIncomplete and partial hydatidiform mole Hanst santhosh Pedraza. [address] [place] [address], [id number]. tel:[phone] Referring Provider: Keila Fernandez, [address] [place] [address], [id number]. tel:[phone] [facility], [address] [place] [address], [id number], [place] tel:[phone] [facility] [place] Encounter for elect zachary termination of Maranda James. [address] [place], [place], [id number]. tel:[phone] [facility], [address] [place] [address], [id number], [place] tel:[phone] [facility] [place] Encounter for pregn kaylene test, result positiveEncntr screen for infections w sexl mode of transmissHigh risk heterosexual behaviorEncounter for oth general cnsl and advice on contraceptionEncounter for initial prescription of contraceptive pills Maranda James. [address] [place] [address], [id number]. tel:[phone] Referring Provider: Erika Low, [address] [place], [place], [id number]. tel:[phone] [facility], [address] [place] [address], [id number], [place] tel:[phone] [facility] Encounter for elect zachary termination of Angel Tirado. [address] [place] [address], [id number], [place]. tel:[phone] Referring Provider: Candida Varma , [address] [place] [address], [id number]. tel:[phone] [facility] [place], [address] [place] [address], [id number], [place] tel:[phone] [facility] Encounter for pregn kaylene test, result positiveEncounter for other preprocedural examinationEncntr screen for infections w sexl mode of transmissHigh risk heterosexual behaviorEncounter for initial prescription of contraceptive pills Angel Tirado . [address] [place] [address], [id number], [place]. tel:[phone] Referring Provider: Candida Varma, [address] [place] [address], [id number]. tel:[phone] [facility] [place], [address] [place] [address], [id number], [place] tel:[phone] [facility] [place] Encounter for elect zachary termination of Rebecca Pedraza. [address] [place] [address], [id number]. tel:[phone] Referring Provider: Keila Fernandez, [address] [place] [address], [id number]. tel:[phone] [facility] [place], [address] [place] [address], [id number], [place] tel:[phone] [facility] Encounter for pregn kaylene test, result positiveEncounter for other preprocedural examinationEncounter for oth general cnsl and advice on contraceptionAnemia, unspecifiedEncounter for initial prescription of contraceptive pills Payne. [address] [place] [address], [id number], [place]. tel:[phone] Referring Provider: Alexsandra Pitts, [address] [place] [address], [id number]. tel:[phone] [facility] [place], [address] [place] [address], [id number], tel:[phone] [facility] Encounter for pregn kaylene test, result positiveEncntr screen for infections w sexl mode of transmissHigh risk heterosexual behavior Clare. [address] [place] [address], [id number]. tel:[phone] Referring Provider: Clare Whitten, [address] [place], [place], [id number]. tel:[phone] Provider: MICHAEL Nurse/[place]. [facility], [address] [place] [address], [address] [place] [address], tel:[phone] [facility] [place] PT, Negative Govind Tirado. [address] [place] [address], [address] [place] [address], . tel:[phone] [facility], [address] [place] [address], [address] [place] [address], [place] tel:[phone] [facility] [place] PT, Positive Govind Tirado. [address] [place] [address], [address] [place] [address], . tel:[phone] Family History Family Member Diagnosis Age At Onset 1st degree relative No hx of cancer of breast, colon, endome trium or ovary Sister No history of Cardiac arrhythmias Brother No history of Stroke 1st degree relative No hx of coronary heart disease (female <65, male <55) Mother No history of Stroke Brother No history of Myocardial infarction Father No history of Cardiac arrhythmias Mother No history of Cardiac arrhythmias Sister No history of Stroke 1st degree relative No hx of osteoporosis Father No history of Myocardial infarction Brother No history of Cardiac arrhythmias Mother No history of Myocardial infarction 1st degree relative No hx of venous thromboembolism Father No history of Stroke Sister No history of Myocardial infarction Immunizations Vaccine Date Status Comments No Information Payers Payer name Insurance type Covered libertarian ID Authorization(s ) [facility] CI [id number] Social History Type Description Quantity Date Captured Comments Alcohol Use Details Unknown Caffeine Use Details Unknown Tobacco Use Status Smoking Status Heavy tobacco smoker Sex Female Vital Signs Date / Time: Height Weight BMI Pulse Rate Blood Pressure Temperatu re Respiratory Rate Body Surface Area Head Circumference BMI percentile Pulse Ox In haled Ox No Information Chief Complaint And Reason For Visit No Information Reason For Referral Reason For Referral No Information Plan Of Treatment Date Type Action Status Goal Tobacco cessation counseling com pleted Goal Tobacco cessation counseling com pleted Goal Tobacco cessation counseling com pleted Goal Tobacco cessation counseling com pleted Goal Tobacco cessation counseling com pleted Goal Tobacco cessation counseling com pleted Goal Tobacco cessation counseling com pleted Appointment April Miller BOOKED Appointment April Miller BOOKED History Of Present Illness Encounter Date Complaint History Of Present I llness No Information Functional Status Date Functional Assessment No Information Medications Administered Medication Instructions Dosage Effective Dates (start - stop) Sta tus Comments acetaminophen 300 mg-codeine 30 mg tablet 1-2 tabs po every 4 ho urs prn pain - No Longer Active Instructions Date Instruction Additional Informati on No Information Assessments Type Assessment Date No Information Goals Health Concern Goal Type Priority Status Date No Information Medical Equipment Description Device [place] Device Identifier Effective Sabino es (start - stop) Status No Information Mental Status Date Cognitive Assessment No Information Health Concerns Observation Date No Information Concern Status Date No Information Physical Examination Exam Findings Details No Information
--- OUTSIDE RECORDS SUMMARY | 2020-11-14 19:55 | CCD | Continuity of Care Document ---
Author Author [facility] Organization [facility] Address Unknown Phone Unavailable Care Team Providers Care Kiln Puller Name Role Phone Mitch COSMETOLOGY PROFESSOR COSMETOLOGY PROFESSOR, Marah Unavailable Unavailable Allergies, Adverse Reactions, Alerts Substance Reaction Status Criticality No Known Allergies Active No Information Medications Medication Instructions Dosage Effective Dates (start - stop) Sta tus Comments Xulane 150 mcg-35 mcg/24 hr transdermal patch Xulane 1 patch per week x 3 weeks then remove x 1 week - Active ALBUTEROL INHALER 90mcg/inh INHALATION SPRAY MD - Active Vicodin 5 mg-300 mg tablet take 1 tablet by oral route every 4 - 6 hours as needed for pain - Active acetaminophen 300 mg-codeine 30 mg tablet 1-2 tabs po every 4 ho urs prn pain - No Longer Active Problems Condition Effective Dates (start - stop) Clinical Status C omments Encounter for test, result negative Encounter for oth general cnsl and advice on contraception Enctr srvlnc transdermal patch hormonal contraceptive device Human immunodeficiency virus [HIV] counseling Other sex counseling Encounter for test, result positive Encounter for elective termination of Enctr for init prescription of patch hormonal contracep dev Other sex counseling Encounter for test, result positive Encntr screen for infections w sexl mode of transmiss Other sex counseling Encounter for oth general cnsl and advice on contraception Other [...] Encounter for other preprocedural examination Encounter for oth general cnsl and advice on contraception Anemia, unspecified Encounter for initial prescription of contraceptive pills Encounter for test, result positive Encntr screen for infections w sexl mode of transmiss High risk heterosexual behavior PT, Negative PT, Positive RhD positive - Active Procedures Procedure Date URINE TEST OFFICE VISIT, EST Post AB HCS Without Test CVR Med.Svc. Other CVR Blood Pressure CVR Med.Svc. Height/Weight CVR Trim Crew Supervisor.Svc. Contraceptive CVR Trim Crew Supervisor.Svc. Other CVR Trim Crew Supervisor.Svc. STI / H Results Test Name Date and Time Measure Units Reference Range Abnormal Flag St atus Comments Panel Description: High Sensitivity Urine Test Fi nal High Sensitivity Urine Test 12:53:04 N egativeLot: [id number]: 12/26/2021 Final Advance Directives Directive Yes / No Effective Date File Name No Information Encounters Encounter Description Practice Location Reason(s) For Visit Diagnose s Date Provider Providers Copied on Encounter OFFICE VISIT, EST Post AB [facility], [address] [place] [address], [id number], tel:[phone] [facility] [place] Medicat ion Post (chief complaint) Encounter for test, result negativeEncounter for oth general cnsl and advice on contraceptionEnctr srvlnc transdermal patch hormonal contraceptive deviceHuman immunodeficiency virus [HIV] counselingOther sex counseling Mitch Crystal. [address] [place] [address], [id number], [place]. tel:[phone] Referring Provider: Marah Kline, [address] [place] [address], [id number]. tel:[phone] [facility], [address] [place] [address], [id number], [place] tel:[phone] [facility] Encounter for pregn kaylene test, result positiveEncounter for elective termination of pregnancyEnctr for init prescription of patch hormonal contracep devOther sex counseling Mitch Crystal. [address] [place] [address], [id number], [place]. tel:[phone] Referring Provider: Marah Jett, [address] [place] [address], [id number]. tel:[phone] [facility], [address] [place] [address], [id number], [place] tel:[phone] [facility] Encounter for pregn kaylene test, result positiveEncntr screen for infections w sexl mode of transmissOther sex counselingEncounter for oth general cnsl and advice on contraception Christine Tyler. [address] [place] [address], [id number], [place]. tel:[phone] Referring Provider: Nayeli King, [address] [place], [place], [id number]. tel:[phone] [facility], [address] [place] [address], [id number], [place] tel:[phone] [facility] Other sex counselin gEncounter for oth general cnsl and advice on contraceptionEncounter for initial prescription of contraceptive pills Magdiel Kulkarni. [address] [place] [address], [id number], [place]. tel:[phone] Referring Provider: Cayla Veloz, [address] [place] [address], [id number]. tel:[phone] [facility], [address] [place] [address], [id number], [place] tel:[phone] [facility] [place] Encounter for pregn kaylene test, result positiveHigh risk heterosexual behaviorOther sex counselingEncounter for oth general cnsl and advice on contraception Magdiel lockett. [address] [place] [address], [id number], [place]. tel:[phone] Referring Provider: Cayla Veloz, [address] [place] [address], [id number]. tel:[phone] [facility] [place], [address] [place] [address], [id number], [place] tel:[phone] [facility] [place] Encounter for elect zachary termination of pregnancyIncomplete and partial hydatidiform mole Smitha Pedraza. [address] [place] [address], [id number]. tel:[phone] Referring Provider: Keila Fernandez, [address] [place] [address], [id number]. tel:[phone] [facility] [place] [place], [address] [place] [address], [id number], [place] tel:[phone] [facility] Encounter for elect zachary termination of Maranda James. [address] [place], [place], [id number]. tel:[phone] [facility], [address] [place] [address], [id number], [place] tel:[phone] [facility] [place] Encounter for pregn kaylene test, result positiveEncntr screen for infections w sexl mode of transmissHigh risk heterosexual behaviorEncounter for oth general cnsl and advice on contraceptionEncounter for initial prescription of contraceptive pills Maranda James. [address] [place] [address], [id number]. tel:[phone] Referring Provider: Erika Low, [address] [place], [place], [id number]. tel:[phone] [facility], [address] [place] [address], [id number], [place] tel:[phone] [facility] [place] Encounter for elect zachary termination of Angel Tirado. [address] [place] [address], [id number], [place]. tel:[phone] Referring Provider: Candida Varma , [address] [place] [address], [id number]. tel:[phone] [facility], [address] [place] [address], [id number], [place] tel:[phone] [facility] [place] Encounter for pregn kaylene test, result positiveEncounter for other preprocedural examinationEncntr screen for infections w sexl mode of transmissHigh risk heterosexual behaviorEncounter for initial prescription of contraceptive pills Angel Tirado . [address] [place] [address], [id number], [place]. tel:[phone] Referring Provider: Candida Varma, [address] [place] [address], [id number]. tel:[phone] [facility], [address] [place] [address], [id number], [place] tel:[phone] [facility] [place] Encounter for elect zachary termination of Rebecca Pedraza. [address] [place] [address], [id number]. tel:[phone] Referring Provider: Keila Fernandez, [address] [place] [address], [id number]. tel:[phone] [facility], [address] [place] [address], [id number], [place] tel:[phone] [facility] [place] Encounter for pregn kaylene test, result positiveEncounter for other preprocedural examinationEncounter for oth general cnsl and advice on contraceptionAnemia, unspecifiedEncounter for initial prescription of contraceptive pills Pavon Alexsandra. [address] [place] [address], [id number], . tel:[phone] Referring Provider: Alexsandra Lewis Deangelo Boone, [address] [place] [address], [id number]. tel:[phone] [facility], [address] [place] [address], [id number], tel:[phone] MICHAEL [place] Encounter for pregn kaylene test, result positiveEncntr screen for infections w sexl mode of transmissHigh risk heterosexual behavior King Clare. [address] [place] [address], [id number]. tel:[phone] Referring Provider: Clare Whitten, [address] [place] [address], [id number]. tel:[phone] Provider: MICHAEL Nurse/[place]. [facility], [address] [place] [address], [address] [place] [address], tel:[phone] MICHA[facility] [place] PT, Negative Govind Tirado. [address] [place] [address], [id number], . tel:[phone] [facility], [address] [place] [address], [id number], tel:[phone] MICHAEL [place] PT, Positive Govind Tirado. [address] [place] [address], [id number], . tel:[phone] Family History Family Member Diagnosis Age At [...] Information Payers Payer name Insurance type Covered green party ID Authorization(s ) [facility] CI [id number] Social History Type Description Quantity Date Captured Comments Alcohol Use Details Unknown Caffeine Use Details Unknown Tobacco Use Status Moderate cigarette smoker (10-19 cigs/day) Smoking Status Heavy tobacco smoker Smoking Tobacco Use Details Cigarette: Years Used 5 Cigarette: 10 Cigarettes per day, Pack Year: 2.5 Sex Female Vital Signs Date / Time: Height Weight BMI Pulse Rate Blood Pressure Temperatu re Respiratory Rate Body Surface Area Head Circumference BMI percentile Pulse Ox In haled Ox 12:51 PM 61.50 in 118.00 lbs 21.93 kg/meter(2) Chief Complaint And Reason For Visit Most recent encounter only, dated '10/18/2020 12:25'. Medication Post (chief complaint) Reason For Referral Reason For Referral No [...] Tobacco cessation counseling com pleted Appointment April Valente BOOKED History Of Present Illness Encounter Date Complaint History Of Present I llness No Information Functional Status Date Functional Assessment No Information Medications Administered Medication Instructions Dosage Effective Dates (start - stop) Sta tus Comments No Information Instructions Date Instruction Additional Informati on No Information Assessments Type Assessment Date assessment Encounter for test, result neg ative assessment Encounter for oth general cnsl and advic e on contraception assessment Enctr srvlnc transdermal patch hormonal contraceptive device assessment Human immunodeficiency virus [HIV] couns eling assessment Other sex counseling Goals Health Concern Goal Type Priority Status Date No Information Medical Equipment Description Device Vincent Device Identifier Effective Sabino es (start - stop) Status No Information Mental Status Date Cognitive Assessment Orientation - Oriented to ti me, place, person, situation.Normal Orientation Health Concerns Observation Date No Information Concern Status Date No Information Physical Examination Exam Findings Details Neurological Normal Level of consciousne ss - Normal. Orientation - Normal. Psychiatric Normal Orientation - [place] ed to time, place, person & situation.
--- OUTSIDE RECORDS SUMMARY | 2020-11-14 19:55 | CCD | Continuity of Care Document ---
Author Author [facility] Organization [facility] Address Unknown Phone Unavailable Care Team Providers Care Manager Critical Care Unit Name Role Phone Green BINDER AND BOX BUILDER BINDER AND BOX BUILDER, Marah Unavailable Unavailable Allergies, Adverse Reactions, Alerts [...] on contraception Other sex counseling Encounter for ot general cnsl and advice on contraception Encounter for initial prescription of contraceptive pills Encounter for test, result positive High risk heterosexual behavior Other sex counseling Encounter for ot general cnsl and advice on contraception Encounter for elective termination of Incomplete and partial hydatidiform mole Encounter for elective termination of Encounter for test, result positive Encntr screen for infections w sexl mode of transmiss High risk heterosexual behavior Encounter for ot general cnsl and advice on contraception Encounter [...] - Active Procedures Procedure Date URINE TEST HEMOGLOBIN CAPILLARY BLOOD DRAW Mifeprex, oral, 200 mg Misoprostol, oral, 200 mcg 4 Tabs MAB CVR Blood Pressure CVR Med.Svc. Height/Weight CVR Top Dyeing Machine Tender.Svc. Contraceptive Est. Patient MAB Exp Prob Focused Results Test Name Date and Time Measure Units Reference Range Abnormal Flag St atus Comments Panel Description: Hemoglobin Final Hemoglobin 15:22:02 11.70 gm/dL Carmella l Panel Description: High Sensitivity Urine Test Fi nal High Sensitivity Urine Test 15:18:25 P ositiveLot: [id number]: 12/26/2021 A Final Advance Directives Directive Yes / No Effective Date File Name No Information Encounters Encounter Description Practice Location Reason(s) For Visit Diagnose s Date Provider Providers Copied on Encounter [facility], [address] [place] [address], [id number], [place] tel:[phone] [facility] [place] (chief complaint)Pr egnancy Test (chief complaint) Encounter for test, result pos itiveEncounter for elective termination of pregnancyEnctr for init prescription of patch hormonal contracep devOther sex counseling Mitch Crystal. [address] [place], [place], [id number], [place]. tel:[phone] Referring Provider: Marah Kline, [address] [place] [address], [id number]. tel:[phone] [facility], [address] [place] [address], [id number], [place] tel:[phone] [facility] [place] Encounter for pregn kaylene test, result positiveEncntr screen for infections w sexl mode of transmissOther sex counselingEncounter for oth general cnsl and advice on contraception Christine Tyler. [address] [place] [address], [id number], [place]. tel:[phone] Referring Provider: Nayeli King, [address] [place], [place], [id number]. tel:[phone] [facility] [place], [address] [place] [address], [id number], [place] tel:[phone] [facility] [address] Other sex counselin gEncounter for oth general cnsl and advice on contraceptionEncounter for initial prescription of contraceptive pills Magdiel Kulkarni. [address] [place] [address], [id number], [place]. tel:[phone] Referring Provider: Cayla Veloz, [address] [place] [address], [id number]. tel:[phone] [facility], [address] [place] [address], [id number], [place] tel:[phone] [facility] [place] Encounter for pregn kaylene test, result positiveHigh risk heterosexual behaviorOther sex counselingEncounter for oth general cnsl and advice on contraception Magdiel lockett. [address] [place] [address], [id number], [place]. tel:[phone] Referring Provider: Cayla Veloz, [address] [place] [address], [id number]. tel:[phone] [facility] [place], [address] [place] [address], [id number], [place] tel:[phone] [facility] [place] Encounter for elect zachary termination of pregnancyIncomplete and partial hydatidiform mole Hanst santhosh Pedraza. [address] [place] [address], [id number]. tel:[phone] Referring Provider: Keila Fernandez, [address] [place], [place], [id number]. tel:[phone] [facility] [place], [address] [place] [address], [id number], [place] tel:[phone] [facility] [address] Encounter for elect zachary termination of Maranda James. [address] [place], [place], [id number]. tel:[phone] [facility] [place], [address] [place] [address], [id number], [place] tel:[phone] [facility] [place] Encounter for pregn kaylene test, result positiveEncntr screen for infections w sexl mode of transmissHigh risk heterosexual behaviorEncounter for oth general cnsl and advice on contraceptionEncounter for initial prescription of contraceptive pills Maranda James. [address] [place] [address], [id number]. tel:[phone] Referring Provider: Erika Low, [address] [place], [place], [id number]. tel:[phone] [facility], [address] [place] [address], [id number], [place] tel:[phone] [facility] [place] Encounter for elect zachary termination of Angel Tirado. [address] [place] [address], [id number], [place]. tel:[phone] Referring Provider: Candida Varma , [address] [place] [address], [id number]. tel:[phone] [facility], [address] [place] [address], [id number], [place] tel:[phone] [facility] [place] Encounter for pregn kaylene test, result positiveEncounter for other preprocedural examinationEncntr screen for infections w sexl mode of transmissHigh risk heterosexual behaviorEncounter for initial prescription of contraceptive pills Angel Tirado . [address] [place] [address], [id number], [place]. tel:[phone] Referring Provider: Candida Varma, [address] [place] [address], [id number]. tel:[phone] [facility], [address] [place] [address], [id number], [place] tel:[phone] [facility] [place] Encounter for elect zachary termination of Rebecca Pedraza. [address] [place] [address], [id number]. tel:[phone] Referring Provider: Keila Fernandez, [address] [place] [address], [id number]. tel:[phone] [facility], [address] [place] [address], [id number], [place] tel:[phone] [facility] [place] Encounter for pregn kaylene test, result positiveEncounter for other preprocedural examinationEncounter for oth general cnsl and advice on contraceptionAnemia, unspecifiedEncounter for initial prescription of contraceptive pills Pavon Alexsandra. [address] [place] [address], [id number], . tel:[phone] Referring Provider: Alexsandra Lewis Vega Mely, [address] [place] [address], [id number]. tel:[phone] [facility], [address] [place] [address], [id number], tel:[phone] MICHAEL [place] Encounter for pregn kaylene test, result positiveEncntr screen for infections w sexl mode of transmissHigh risk heterosexual behavior King Clare. [address] [place] [address], [id number]. tel:[phone] Referring Provider: Clare Whitten, [address] [place] [address], [id number]. tel:[phone] Provider: MICHAEL Nurse/[place]. [facility], [address] [place] [address], [id number], tel:[phone] MICHAEL [place] PT, Negative Govind Tirado. [address] [place] [address], [id number], . tel:[phone] [facility], [address] [place] [address], [id number], tel:[phone] MICHAEL [place] PT, Positive Govind Tirado. [address] [place] [address], [id number], [place]. tel:[phone] Family History Family Member Diagnosis Age At [...] Insurance type Covered libertarian ID Authorization(s ) [facility] CI [id number] Social History Type Description Quantity Date Captured Comments Alcohol Use Details Unknown Caffeine Use Details Unknown Tobacco Use Status Smoking Status Heavy tobacco smoker Sex Female Vital Signs Date / Time: Height Weight BMI Pulse Rate Blood Pressure Temperatu re Respiratory Rate Body Surface Area Head Circumference BMI percentile Pulse Ox In haled Ox 3:09 PM 61.50 in 121.80 lbs 22.64 kg/meter(2) 118/77 m m[Hg] Chief Complaint And Reason For Visit Most recent encounter only, dated '09/20/2020 14:25'. (chief complaint) Test (chief complaint) Reason For Referral Reason For [...] Assessment Date assessment Encounter for test, result pos itive assessment Encounter for elective termination of pr egnancy assessment Enctr for init prescription of patch hor monal contracep dev assessment Other sex counseling Goals Health Concern Goal Type Priority Status Date No Information Medical Equipment Description Device [place] Device Identifier Effective Sabino es (start - stop) Status No Information Mental Status Date Cognitive Assessment Orientation - Oriented to ti me, place, person, situation.Normal Orientation Health Concerns Observation Date No Information Concern Status Date No Information Physical Examination Exam Findings Details Neurological Normal Level of consciousne ss - Normal. Orientation - Normal. Psychiatric Normal Orientation - [place] ed to time, place, person & situation.
--- OUTSIDE RECORDS SUMMARY | 2020-11-14 19:55 | CCD | Continuity of Care Document ---
Author Author [facility] Organization [facility] Address Unknown Phone Unavailable Care Team Providers Care Shank Taper Name Role Phone Lauren Fountain MD Unavailable Unavailable Allergies, Adverse Reactions, Alerts Substance [...] Provider Providers Copied on Encounter [facility], [address] [place] [address], [id number], tel:[phone] [facility] No Information W sae Aguilar. [address] [place] [address], [id number], [place]. tel:[phone] [facility], [address] [place] [address], [id number], [place] tel:[phone] [facility] Encounter for pregn kaylene test, result negativeEncounter for oth general cnsl and advice on contraceptionEnctr srvlnc transdermal patch hormonal contraceptive deviceHuman immunodeficiency virus [HIV] counselingOther sex counseling [place] Crystal. [address] [place] [address], [id number], [place]. tel:[phone] Referring Provider: Marah Kline, [address] [place] [address], [id number]. tel:[phone] [facility], [address] [place] [address], [id number], tel:[phone] [facility] Encounter for pregn kaylene test, result positiveEncounter for elective termination of pregnancyEnctr for init prescription of patch hormonal contracep devOther sex counseling [place] Crystal. [address] [place] [address], [id number], [place]. tel:[phone] Referring Provider: Marah Jett, [address] [place] [address], [id number]. tel:[phone] [facility] [place], [address] [place] [address], [id number], [place] tel:[phone] [facility] Encounter for pregn kaylene test, result positiveEncntr screen for infections w sexl mode of transmissOther sex counselingEncounter for oth general cnsl and advice on contraception Christine Tyler. [address] [place] [address], [id number], [place]. tel:[phone] Referring Provider: Nayeli King, [address] [place], [place], [id number]. tel:[phone] [facility] [place], [address] [place] [address], [id number], [place] tel:[phone] [facility] Other sex counselin gEncounter for oth general cnsl and advice on contraceptionEncounter for initial prescription of contraceptive pills Magdiel Kulkarni. [address] [place] [address], [id number], [place]. tel:[phone] Referring Provider: Cayla Veloz, [address] [place] [address], [id number]. tel:[phone] [facility] [place], [address] [place] [address], [id number], [place] tel:[phone] [facility] Encounter for pregn kaylene test, result positiveHigh risk heterosexual behaviorOther sex counselingEncounter for oth general cnsl and advice on contraception Magdiel lockett. [address] [place] [address], [id number], [place]. tel:[phone] Referring Provider: Cayla Veloz, [address] [place] [address], [id number]. tel:[phone] [facility], [address] [place] [address], [id number], [place] tel:[phone] [facility] Encounter for elect zachary termination of pregnancyIncomplete and partial hydatidiform mole Hanst santhosh Pedraza. [address] [place] [address], [id number]. tel:[phone] Referring Provider: Keila Fernandez, [address] [place] [address], [id number]. tel:[phone] [facility], [address] [place] [address], [id number], [place] tel:[phone] [facility] Encounter for elect zachary termination of Maranda James. [address] [place], [place], [id number]. tel:[phone] [facility], [address] [place] [address], [id number], [place] tel:[phone] [facility] Encounter for pregn kaylene test, result positiveEncntr screen for infections w sexl mode of transmissHigh risk heterosexual behaviorEncounter for oth general cnsl and advice on contraceptionEncounter for initial prescription of contraceptive pills Maranda James. [address] [place] [address], [id number]. tel:[phone] Referring Provider: Erika Low, [address] [place], [place], [id number]. tel:[phone] [facility], [address] [place] [address], [id number], [place] tel:[phone] [facility] Encounter for elect zachary termination of Angel Tirado. [address] [place] [address], [id number], [place]. tel:[phone] Referring Provider: Candida Varma , [address] [place] [address], [id number]. tel:[phone] [facility], [address] [place] [address], [id number], [place] tel:[phone] [facility] Encounter for pregn kaylene test, result positiveEncounter for other preprocedural examinationEncntr screen for infections w sexl mode of transmissHigh risk heterosexual behaviorEncounter for initial prescription of contraceptive pills Angel Tirado . [address] [place] [address], [id number], [place]. tel:[phone] Referring Provider: Candida Varma, [address] [place] [address], [id number]. tel:[phone] [facility], [address] [place] [address], [id number], [place] tel:[phone] [facility] Encounter for elect zachary termination of Rebecca Pedraza. [address] [place] [address], [id number]. tel:[phone] Referring Provider: Keila Fernandez, [address] [place] [address], [id number]. tel:[phone] [facility], [address] [place] [address], [id number], [place] tel:[phone] [facility] Encounter for pregn kaylene test, result positiveEncounter for other preprocedural examinationEncounter for oth general cnsl and advice on contraceptionAnemia, unspecifiedEncounter for initial prescription of contraceptive pills Payne. [address] [place] [address], [id number], [place]. tel:[phone] Referring Provider: Alexsandra Pitts, [address] [place] [address], [id number]. tel:[phone] [facility] [place], [address] [place] [address], [id number], tel:[phone] [facility] Encounter for pregn kaylene test, result positiveEncntr screen for infections w sexl mode of transmissHigh risk heterosexual behavior Clare. [address] [place] [address], [id number]. tel:[phone] Referring Provider: Clare Whitten, [address] [place], [place], [id number]. tel:[phone] Provider: MICHAEL Nurse/CA. [facility], [address] [place] [address], [address] [place] [address], tel:[phone] [facility] PT, Negative Govind Tirado. [address] [place] [address], [address] [place] [address], . tel:[phone] [facility] [place], [address] [place] [address], [address] [place] [address], [place] tel:[phone] [facility] PT, Positive Govind Tirado. [address] [place] [address], [address] [place] [address], . tel:[phone] Family History Family Member Diagnosis Age At [...] Information Payers Payer name Insurance type Covered democrat ID Authorization(s ) [facility] CI [id number] Social History Type Description Quantity Date Captured [...] cessation counseling com pleted Appointment April Valente History Of Present Illness Encounter Date Complaint [...] Date No Information Medical Equipment Description Device [place] Device Identifier Effective Sabino es (start - stop) Status No Information Mental Status Date Cognitive Assessment No Information Health Concerns Observation Date No Information Concern Status Date No Information Physical Examination Exam Findings Details No Information
--- OUTSIDE RECORDS SUMMARY | 2020-11-14 19:55 | CCD | Continuity of Care Document ---
Author Author [facility] Organization [facility] Address Unknown Phone Unavailable Care Team Providers Care .Net Developer Name Role Phone Lauren Fountain MD Unavailable Unavailable Allergies, Adverse Reactions, Alerts Substance Reaction Status Criticality No Known Allergies Active No Information Medications Medication Instructions Dosage Effective Dates (start - stop) Sta tus Comments ALBUTEROL INHALER 90mcg/inh INHALATION SPRAY MD - Active Vicodin 5 mg-300 mg tablet take 1 tablet by oral route every 4 - 6 hours as needed for pain - Active ALBUTEROL INHALER 90mcg/inh INHALATION SPRAY MD - Active Problems Condition Effective Dates (start - stop) Clinical Status C omments Encounter for test, result positive Encntr screen [...] Provider Providers Copied on Encounter [facility], [address] [place] [address], [id number], tel:[phone] [facility] [place] No Information Александр Aguilar. [address] [place] [address], [id number], [place]. tel:[phone] [facility], [address] [place] [address], [id number], [place] tel:[phone] [facility] [place] Encounter for pregn kaylene test, result positiveEncntr screen for infections w sexl mode of transmissOther sex counselingEncounter for oth general cnsl and advice on contraception Christine Tyler. [address] [place] [address], [id number], [place]. tel:[phone] Referring Provider: Nayeli King, [address] [place], [place], [id number]. tel:[phone] [facility], [address] [place] [address], [id number], [place] tel:[phone] [facility] [place] Other sex counselin gEncounter for oth general cnsl and advice on contraceptionEncounter for initial prescription of contraceptive pills Magdiel Kulkarni. [address] [place] [address], [id number], [place]. tel:[phone] Referring Provider: Cayla Veloz, [address] [place] [address], [id number]. tel:[phone] [facility], [address] [place] [address], [id number], [place] tel:[phone] [facility] [place] Encounter for pregn kaylene test, result positiveHigh risk heterosexual behaviorOther sex counselingEncounter for oth general cnsl and advice on contraception Magdiel lockett. [address] [place] [address], [id number], [place]. tel:[phone] Referring Provider: Cayla Veloz, [address] [place] [address], [id number]. tel:[phone] [facility], [address] [place] [address], [id number], [place] tel:[phone] [facility] [place] Encounter for elect zachary termination of pregnancyIncomplete and partial hydatidiform mole Hanst santhosh Pedraza. [address] [place] [address], [id number]. tel:[phone] Referring Provider: Keila Fernandez, [address] [place] [address], [id number]. tel:[phone] [facility], [address] [place] [address], [id number], [place] tel:[phone] [facility] Encounter for elect zachary termination of Maranda James. [address] [place] [address], [id number]. tel:[phone] [facility], [address] [place] [address], [id number], [place] tel:[phone] [facility] [place] Encounter for pregn kaylene test, result positiveEncntr screen for infections w sexl mode of transmissHigh risk heterosexual behaviorEncounter for oth general cnsl and advice on contraceptionEncounter for initial prescription of contraceptive pills Maranda James. [address] [place] [address], [id number]. tel:[phone] Referring Provider: Erika Low, [address] [place], [place], [id number]. tel:[phone] [facility], [address] [place] [address], [id number], [place] tel:[phone] [facility] [place] Encounter for elect zachary termination of Angel Tirado. [address] [place] [address], [id number], [place]. tel:[phone] Referring Provider: Candida Varma , [address] [place] [address], [id number]. tel:[phone] [facility] [place], [address] [place] [address], [id number], [place] tel:[phone] [facility] [place] Encounter for pregn kaylene test, result positiveEncounter for other preprocedural examinationEncntr screen for infections w sexl mode of transmissHigh risk heterosexual behaviorEncounter for initial prescription of contraceptive pills Angel Tirado . [address] [place] [address], [id number], [place]. tel:[phone] Referring Provider: Candida Varma, [address] [place] [address], [id number]. tel:[phone] [facility] [place], [address] [place] [address], [id number], [place] tel:[phone] [facility] [place] Encounter for elect zachary termination of Rebecca Pedraza. [address] [place] [address], [id number]. tel:[phone] Referring Provider: Keila Fernandez, [address] [place] [address], [id number]. tel:[phone] [facility] [place], [address] [place] [address], [id number], [place] tel:[phone] [facility] [place] Encounter for pregn kaylene test, result positiveEncounter for other preprocedural examinationEncounter for oth general cnsl and advice on contraceptionAnemia, unspecifiedEncounter for initial prescription of contraceptive pills Payne. [address] [place] [address], [id number], . tel:[phone] Referring Provider: Alexsandra Pitts, [address] [place] [address], [id number]. tel:[phone] [facility], [address] [place] [address], [id number], tel:[phone] [facility] [place] Encounter for pregn kaylene test, result positiveEncntr screen for infections w sexl mode of transmissHigh risk heterosexual behavior King Clare. [address] [place] [address], [id number]. tel:[phone] Referring Provider: Clare Whitten, [address] [place] [address], [id number]. tel:[phone] Provider: MICHAEL Nurse/CA. [facility], [address] [place] [address], [address] [place] [address], tel:[phone] [facility] [place] PT, Negative Govind Tirado. [address] [place] [address], [id number], . tel:[phone] [facility], [address] [place] [address], [id number], tel:[phone] [facility] [place] PT, Positive Govind Tirado. [address] [place] [address], [id number], . tel:[phone] Family History Family Member Diagnosis Age At [...] Information Payers Payer name Insurance type Covered alliance party ID Authorization(s ) [facility] CI [id number] Social History Type Description Quantity Date Captured [...] counseling com pleted Appointment April Miller BOOKED History Of Present [...] Date No Information Medical Equipment Description Device [place] Device Identifier Effective Sabino es (start - stop) Status No Information Mental Status Date Cognitive Assessment No Information Health Concerns Observation Date No Information Concern Status Date No Information Physical Examination Exam Findings Details No Information
--- OUTSIDE RECORDS SUMMARY | 2020-11-14 19:55 | CCD | Continuity of Care Document ---
Author Author [facility] Organization [facility] Address Unknown Phone Unavailable Care Team Providers Care Cigar Patcher Name Role Phone Lauren Fountain MD Unavailable Unavailable Allergies, Adverse Reactions, Alerts Substance Reaction Status Criticality No Known Allergies Active No Information Medications Medication Instructions Dosage Effective Dates (start - stop) Sta tus Comments Xulane 150 mcg-35 mcg/24 hr transdermal patch Xulane 1 patch per week x 3 weeks then remove x 1 week - Active acetaminophen 300 mg-codeine 30 mg tablet 1-2 tabs po every 4 ho urs prn pain - Active ALBUTEROL INHALER 90mcg/inh INHALATION SPRAY MD - Active Vicodin 5 mg-300 mg tablet take 1 tablet by oral route every 4 - 6 hours as needed for pain - Active Problems Condition Effective Dates (start [...] Provider Providers Copied on Encounter [facility], [address] [place] [address], [address] [place] [address], tel:[phone] [facility] No Information W sae Aguilar. [address] [place] [address], [id number], . tel:[phone] [facility], [address] [place] [address], [id number], tel:[phone] [facility] Encounter for pregn kaylene test, result positiveEncounter for elective termination of pregnancyEnctr for init prescription of patch hormonal contracep devOther sex counseling [place] Crystal. [address] [place] [address], [id number], . tel:[phone] Referring Provider: Marah Jett, [address] [place] [address], [id number]. tel:[phone] [facility], [address] [place] [address], [id number], tel:[phone] [facility] Encounter for pregn kaylene test, result positiveEncntr screen for infections w sexl mode of transmissOther sex counselingEncounter for oth general cnsl and advice on contraception Christine Tyler. [address] [place] [address], [id number], [place]. tel:[phone] Referring Provider: Nayeli King, [address] [place], [place], [id number]. tel:[phone] [facility] [place], [address] [place] [address], [id number], [place] tel:[phone] [facility] Other sex counselin gEncounter for oth general cnsl and advice on contraceptionEncounter for initial prescription of contraceptive pills Magdiel Kulkarni. [address] [place] [address], [id number], [place]. tel:[phone] Referring Provider: Cayla Veloz, [address] [place] [address], [id number]. tel:[phone] [facility] [place], [address] [place] [address], [id number], [place] tel:[phone] [facility] Encounter for pregn kaylene test, result positiveHigh risk heterosexual behaviorOther sex counselingEncounter for oth general cnsl and advice on contraception Magdiel swift [address] [place] [address], [id number], [place]. tel:[phone] Referring Provider: Cayla Veloz, [address] [place] [address], [id number]. tel:[phone] [facility] [place], [address] [place] [address], [id number], [place] tel:[phone] [facility] Encounter for elect zachary termination of pregnancyIncomplete and partial hydatidiform mole Mest santhosh Pedraza. [address] [place] [address], [id number]. tel:[phone] Referring Provider: Keila Fernandez, [address] [place] [address], [id number]. tel:[phone] [facility] [place], [address] [place] [address], [id number], [place] tel:[phone] [facility] [place] Encounter for elect zachary termination of Maranda James. [address] [place], [place], [id number]. tel:[phone] [facility], [address] [place] [address], [id number], [place] tel:[phone] [facility] [place] Encounter for pregn kaylene test, result positiveEncntr screen for infections w sexl mode of transmissHigh risk heterosexual behaviorEncounter for oth general cnsl and advice on contraceptionEncounter for initial prescription of contraceptive pills Maranda James. [address] [place] [address], [id number]. tel:[phone] Referring Provider: Erika Low, [address] [place] [address], [id number]. tel:[phone] [facility], [address] [place] [address], [id number], [place] tel:[phone] [facility] [place] Encounter for elect zachary termination of Angel Tirado. [address] [place] [address], [id number], [place]. [phone] Referring Provider: Candida Varma , [address] [place] [address], [id number]. tel:[phone] [facility], [address] [place] [address], [id number], [place] tel:[phone] [facility] [place] Encounter for pregn kaylene test, result positiveEncounter for other preprocedural examinationEncntr screen for infections w sexl mode of transmissHigh risk heterosexual behaviorEncounter for initial prescription of contraceptive pills Angel Tirado . [address] [place] [address], [id number], [place]. tel:[phone] Referring Provider: Candida Varma, [address] [place] [address], [id number]. tel:[phone] [facility] [place], [address] [place], [place], [id number], [place] tel:[phone] [facility] [place] Encounter for elect zachary termination of Rebecca Pedraza. [address] [place], [place], [id number]. tel:[phone] Referring Provider: Keila Fernandez, [address] [place], [place], [id number]. tel:[phone] [facility] [place], [address] [place], [place], [id number], [place] tel:[phone] [facility] [place] Encounter for pregn kaylene test, result positiveEncounter for other preprocedural examinationEncounter for oth general cnsl and advice on contraceptionAnemia, unspecifiedEncounter for initial prescription of contraceptive pills Payne. [address] [place] [address], [id number], [place]. tel:[phone] Referring Provider: Alexsandra Pitts, [address] [place] [address], [id number]. tel:[phone] [facility] [place], [address] [place], [place], [id number], [place] tel:[phone] [facility] [place] Encounter for pregn kaylene test, result positiveEncntr screen for infections w sexl mode of transmissHigh risk heterosexual behavior King Clare. [address] [place], [place], [id number]. tel:[phone] Referring Provider: Clare Whitten, [address] [place], [place], [id number]. tel:[phone] Provider: MICHAEL Nurse/[place]. [facility] [place], [address] [place] [address], [id number], [place] tel:[phone] [facility] [place] PT, Negative Govind Tirado. [address] [place], [place], [id number], [place]. tel:[phone] [facility], [address] [place], [place], [id number], tel:[phone] [facility] [place] PT, Positive Govind Tirado. [address] [place] [address], [id number], [place]. tel:[phone] Family History Family Member Diagnosis Age At [...] type Covered green party ID Authorization(s ) [facility] CI [id number] Social History Type Description Quantity Date Captured [...] Date No Information Medical Equipment Description Device [place] Device Identifier Effective Sabino es (start - stop) Status No Information Mental Status Date Cognitive Assessment No Information Health Concerns Observation Date No Information Concern Status Date No Information Physical Examination Exam Findings Details No Information
--- OUTSIDE RECORDS SUMMARY | 2020-11-14 19:56 | CCD | Continuity of Care Document ---
Author Author [facility] Organization [facility] Address Unknown Phone Unavailable Care Team Providers [employer] Worker Name Role Phone Nayeli Monson Unavailable Unavailable Allergies, Adverse Reactions, Alerts Substance [...] Procedure Date URINE TEST OFFICE VISIT, EST CHYLMD TRACH, URINE N.GONORRHOEAE, URINE CVR Blood Pressure CVR Med.Svc. Height/Weight CVR Oven Operator.Svc. Contraceptive CVR Oven Operator.Svc. Other CVR Oven Operator.Svc. STI / H Results Test Name Date and Time Measure Units Reference Range Abnormal Flag St atus Comments Panel Description: Chlamydia trachomatis rRNA [Presence] in Unspecified specimen by JUVENTINO with probe detection Final Urine CT/GC Combo - CT 00:00:00 Negative N Final Performed by:
CDD ([id number])

Panel Description: Amplified GC - Urine Final Urine CT/GC Combo - GC 00:00:00 Negative N Final : Yes

Performed by:
CDD ([id number])

Panel Description: High Sensitivity Urine Test Fi nal High Sensitivity Urine Test 13:02:11 Positive A Final Advance Directives Directive Yes / No Effective Date File Name No Information Encounters Encounter Description Practice Location Reason(s) For Visit Diagnose s Date Provider Providers Copied on Encounter OFFICE VISIT, EST [facility] [address], [id number], tel:[phone] [facility] [place] Test (ch ief complaint) Encounter for test, result pos itiveEncntr screen for infections w sexl mode of transmissOther sex counselingEncounter for oth general cnsl and advice on contraception Christine Tylre. [address] [place] [address], [id number], [place]. tel:[phone] Referring Provider: Nayeli King, [address] [place] [address], [id number]. tel:[phone] [facility] [place], [address], [place], [id number], [place] tel:[phone] [facility] Other sex counselin gEncounter for oth general cnsl and advice on contraceptionEncounter for initial prescription of contraceptive pills Magdiel Kulkarni. [address] [place], [place], [id number], [place]. tel:[phone] Referring Provider: Cayla Veloz, [address], [place], [id number]. tel:[phone] [facility], [address] [place] [address], [id number], [place] tel:[phone] [facility] Encounter for pregn kaylene test, result positiveHigh risk heterosexual behaviorOther sex counselingEncounter for oth general cnsl and advice on contraception Magdiel swift [address], [place], [id number], [place]. tel:[phone] Referring Provider: Cayla Veloz, [address], [place], [id number]. tel:[phone] [facility], [address], [place], [id number], [place] tel:[phone] [facility] Encounter for elect zachary termination of pregnancyIncomplete and partial hydatidiform mole Smitha Pedraza. [address] [place], [place], [id number]. tel:[phone] Referring Provider: Keila Fernandez, [address] [place], [place], [id number]. tel:[phone] [facility], [address], [place], [id number], [place] tel:[phone] [facility] Encounter for elect zachary termination of Maranda James. [address] [place], [place], [id number]. tel:[phone] [facility], [address] [place] [address], [id number], [place] tel:[phone] [facility] Encounter for pregn kaylene test, result positiveEncntr screen for infections w sexl mode of transmissHigh risk heterosexual behaviorEncounter for oth general cnsl and advice on contraceptionEncounter for initial prescription of contraceptive pills Maranda James. [address] [place] [address], [id number]. tel:[phone] Referring Provider: Erika Low, [address] [place] [address], [id number]. tel:[phone] [facility], [address] [place] [address], [id number], [place] tel:[phone] [facility] Encounter for elect zachary termination of Angel Tirado. [address] [place] [address], [id number], [place]. tel:[phone] Referring Provider: Candida Varma , [address] [place] [address], [id number]. tel:[phone] [facility], [address] [place] [address], [id number], [place] tel:[phone] [facility] Encounter for pregn kaylene test, result positiveEncounter for other preprocedural examinationEncntr screen for infections w sexl mode of transmissHigh risk heterosexual behaviorEncounter for initial prescription of contraceptive pills Angel Tirado . [address] [place] [address], [id number], [place]. tel:[phone] Referring Provider: Candida Varma, [address] [place] [address], [id number]. tel:[phone] [facility], [address] [place] [address], [id number], [place] tel:[phone] [facility] Encounter for elect zachary termination of Kennedybryant Keila. [address] [place], [place], [id number]. tel:[phone] Referring Provider: Keila Kennedybryant, [address] [place], [place], [id number]. tel:[phone] [facility], [address] [place] [address], [id number], [place] tel:[phone] [facility] Encounter for pregn kaylene test, result positiveEncounter for other preprocedural examinationEncounter for oth general cnsl and advice on contraceptionAnemia, unspecifiedEncounter for initial prescription of contraceptive pills Payne. [address] [place] [address], [id number], [place]. tel:[phone] Referring Provider: Alexsandra Pitts, [address] [place] [address], [id number]. tel:[phone] [facility] [place], [address] [place] [address], [id number], [place] tel:[phone] [facility] Encounter for pregn kaylene test, result positiveEncntr screen for infections w sexl mode of transmissHigh risk heterosexual behavior King Clare. [address] [place] [address], [id number]. tel:[phone] Referring Provider: Clare Whitten, [address], [place], [id number]. tel:[phone] Provider: MICHAEL Nurse/[place]. [facility] [place], [address] [place] [address], [id number], [place] tel:[phone] [facility] [place] PT, Negative Govind Tirado. [address] [place] [address], [id number], [place]. tel:[phone] [facility] [place], [address], [place], [id number], tel:[phone] [facility] [place] PT, Positive Govind Tirado. [address] [place] [address], [id number], . tel:[phone] Family History Family Member Diagnosis Age At [...] Insurance type Covered democrat ID Authorization(s ) [facility] CI [id number] Social History Type Description Quantity Date Captured [...] BMI percentile Pulse Ox In haled Ox 1:05 PM 61.50 in 124.60 lbs 23.16 kg/meter(2) 118/70 m m[Hg] Chief Complaint And Reason For Visit Most recent encounter only, dated '09/15/2020 12:30'. Test (chief complaint) Reason For Referral Reason [...] Encounter for test, result pos itive assessment Encntr screen for infections w sexl mode of transmiss assessment Other sex counseling assessment Encounter for oth general cnsl and advic e on contraception Goals Health Concern Goal Type Priority Status Date No Information Medical Equipment Description Device Percival Device Identifier Effective Sabino es (start - stop) Status No Information Mental Status Date Cognitive Assessment Orientation - Oriented to ti me, place, person, situation.Normal Orientation Health Concerns Observation Date No Information Concern Status Date No Information Physical Examination Exam Findings Details Neurological Normal Level of consciousne ss - Normal. Orientation - Normal. Psychiatric Normal Orientation - [place] ed to time, place, person & situation.
--- OUTSIDE RECORDS SUMMARY | 2020-11-14 19:56 | CCD ---
Author Author [facility] Organization [facility] Address Unknown Phone Unavailable Care Team Providers Care Motion Picture Camera Lens Technician Name Role Phone Regino Fountain MD Unavailable Unavailable Regino Fountain MD Unavailable Unavailable Regino Fountain MD Unavailable Unavailable Regino Fountain MD Unavailable Unavailable Regino Fountain MD Unavailable Unavailable Region Fountain MD Unavailable Unavailable Regino Fountain MD Unavailable Unavailable Regino Fountain MD Unavailable Unavailable Regino Fountain MD Unavailable Unavailable Regino Fountain MD Unavailable Unavailable Regino Fountain MD Unavailable Unavailable Regino Fountain MD Unavailable Unavailable Regino Fountain MD Unavailable Unavailable Regino Fountain MD Unavailable Unavailable Regino Fountain MD Unavailable Unavailable Regino Fountain MD Unavailable Unavailable Regino Fountain MD Unavailable Unavailable Regino Fountain MD Unavailable Unavailable Regino Fountain MD Unavailable Unavailable Regino Fountain MD Unavailable Unavailable Regino Fountain MD Unavailable Unavailable Regino Fountain MD Unavailable Unavailable Regino Fountain MD Unavailable Unavailable Regino Fountain MD Unavailable Unavailable Александр, Regino Aguilar MD Unavailable Unavailable Александр, Regino Aguilar MD Unavailable Unavailable Александр, Regino Aguilar MD Unavailable Unavailable Александр, Regino Aguilar MD Unavailable Unavailable Александр, Regino Aguilar MD Unavailable Unavailable Александр, Regino Aguilar MD Unavailable Unavailable Александр, Regino Aguilar MD Unavailable Unavailable Александр, Regino Aguilar MD Unavailable Unavailable Александр, Regino Aguilar MD Unavailable Unavailable Александр, Regino Aguilar MD Unavailable Unavailable Александр, Regino Aguilar MD Unavailable Unavailable Александр, Regino Aguilar MD Unavailable Unavailable Александр, Regino Aguilar MD Unavailable Unavailable Александр, A Lauren MINOR Unavailable Unavailable Александр, Regino Aguilar MD Unavailable Unavailable Александр, Regino Aguilar MD Unavailable Unavailable Александр, Regino Aguilar MD Unavailable Unavailable Александр, Regino Aguilar MD Unavailable Unavailable Александр, A Lauren MINOR Unavailable Unavailable Александр, A Lauren MINOR Unavailable Unavailable Александр, A Lauren MINOR Unavailable Unavailable Александр, A Lauren MINOR Unavailable Unavailable Александр, A Lauren MINOR Unavailable Unavailable Александр, A Lauren MINOR Unavailable Unavailable Александр, Regino Aguilar MD Unavailable Unavailable Александр, A Lauren MINOR Unavailable Unavailable Александр, A Lauren MINOR Unavailable Unavailable Александр, A Lauren MINOR Unavailable Unavailable Александр, A Lauren MINOR Unavailable Unavailable Александр, Regino Aguilar MD Unavailable Unavailable Александр, Regino Aguilar MD Unavailable Unavailable Александр, Regino Aguilar MD Unavailable Unavailable Александр, Regino Aguilar MD Unavailable Unavailable Александр, Regino Aguilar MD Unavailable Unavailable Александр, A Lauren MINOR Unavailable Unavailable Александр, A Lauren MINOR Unavailable Unavailable Александр, A Lauren MINOR Unavailable Unavailable Александр, Regino Aguilar MD Unavailable Unavailable Александр, Regino Aguilar MD Unavailable Unavailable Александр, Regino Aguilar MD Unavailable Unavailable Александр, Regino Aguilar MD Unavailable Unavailable Александр, Regino Aguilar MD Unavailable Unavailable Александр, Regino Aguilar MD Unavailable Unavailable Александр, Regino Aguilar MD Unavailable Unavailable Александр, Regino Aguilar MD Unavailable Unavailable Александр, Regino Aguilar MD Unavailable Unavailable Александр, Regino Aguilar MD Unavailable Unavailable Александр, Regino Aguilar MD Unavailable Unavailable Александр, Regino Aguilar MD Unavailable Unavailable Александр, Regino Aguilar MD Unavailable Unavailable Александр, Regnio Aguilar MD Unavailable Unavailable Dwayne Matson MD Unavailable Unavailable Dwayne Matson MD Unavailable Unavailable Dwayne Matson MD Unavailable Unavailable Dwayne Matson MD Unavailable Unavailable Dwayne Matson MD Unavailable Unavailable Dwayne Matson MD Unavailable Unavailable Dwayne Matson MD Unavailable Unavailable Dwayne Matson MD Unavailable Unavailable Dwayne Matson MD Unavailable Unavailable Dwayne Matson MD Unavailable Unavailable Dwayne Matson MD Unavailable Unavailable Dwayne Matson MD Unavailable Unavailable Dwayne Matson MD Unavailable Unavailable HeDwayne coon MD Unavailable Unavailable Dwayne Matson MD Unavailable Unavailable Dwayne Matson MD Unavailable Unavailable Dwayne Matson MD Unavailable Unavailable HeDwayne coon MD Unavailable Unavailable HeDwayne coon MD Unavailable Unavailable HeDwayne coon MD Unavailable Unavailable HeDwayne coon MD Unavailable Unavailable HeitDwayne salazar MD Unavailable Unavailable HeitDwayne salazar MD Unavailable Unavailable HeDwayne coon MD Unavailable Unavailable HeitDwayne salazar MD Unavailable Unavailable Green RESEARCH PROGRAM ASSISTANT RESEARCH PROGRAM ASSISTANT, Marah Unavailable Unavailable Green RESEARCH PROGRAM ASSISTANT RESEARCH PROGRAM ASSISTANT, Marah Unavailable Unavailable Green RESEARCH PROGRAM ASSISTANT RESEARCH PROGRAM ASSISTANT, Marah Unavailable Unavailable Mark, Anitha RESEARCH PROGRAM ASSISTANT Unavailable Unavailable Mark, Anitha RESEARCH PROGRAM ASSISTANT Unavailable Unavailable Mark, Anitha RESEARCH PROGRAM ASSISTANT Unavailable Unavailable Mark, Anitha RESEARCH PROGRAM ASSISTANT Unavailable Unavailable Mark, Anitha RESEARCH PROGRAM ASSISTANT Unavailable Unavailable Mark, Anitha RESEARCH PROGRAM ASSISTANT Unavailable Unavailable Mark, Anitha RESEARCH PROGRAM ASSISTANT Unavailable Unavailable Mark, Anitha RESEARCH PROGRAM ASSISTANT Unavailable Unavailable Mark, Anitha RESEARCH PROGRAM ASSISTANT Unavailable Unavailable Mark, Anitha RESEARCH PROGRAM ASSISTANT Unavailable Unavailable Mark, Anitha RESEARCH PROGRAM ASSISTANT Unavailable Unavailable Vivian King PA Unavailable Unavailable Vivain Kingey PA Unavailable Unavailable Vivian Kingey PA Unavailable Unavailable Vivian King Nayeli PA Unavailable Unavailable Vivian King Nayeli PA Unavailable Unavailable Vivian King Nayeli PA Unavailable Unavailable Vivian King Nayeli PA Unavailable Unavailable Vivian Kingey PA Unavailable Unavailable Vivian King Nayeli PA Unavailable Unavailable Vivian King Nayeli PA Unavailable Unavailable Vivian King Nayeli PA Unavailable Unavailable Christine J Nayeli PA Unavailable Unavailable Christine J Nayeli PA Unavailable Unavailable Christine J Nayeli PA Unavailable Unavailable Vivian King Nayeli PA Unavailable Unavailable Vivian King Nayeli PA Unavailable Unavailable Vivian King Nayeli PA Unavailable Unavailable Houston J Nayeli PA Unavailable Unavailable Vivian King Nayeli PA Unavailable Unavailable Christine J Nayeli PA Unavailable Unavailable Christine J Nayeli PA Unavailable Unavailable Christine J Nayeli PA Unavailable Unavailable Dwello PA PA, Marlen Unavailable Unavailable Dwello PA PA, Marlen Unavailable Unavailable Re-disclosure Warning The records that you are about to access may contain information from federally-assisted alcohol or drug abuse programs. If such information is present, then the following federally mandated warning applies: This information has been disclosed to you from records protected by federal confidentiality rules (42 CFR part 2). The federal rules prohibit you from making any further disclosure of this information unless further disclosure is expressly permitted by the written consent of the person to whom it pertains or as otherwise permitted by 42 CFR part 2. A general authorization for the release of medical or other information is NOT sufficient for this purpose. The Federal rules restrict any use of the information to criminally investigate or prosecute any alcohol or drug abuse patient.The records that you are about to access may contain highly sensitive health information, the redisclosure of which is protected by Article 27-F of the [facility] Public Health law. If you continue you may have access to information: Regarding HIV / AIDS; Provided by facilities licensed or operated by the [facility] Office of Mental Health; or Provided by the [facility] Office for People With Developmental Disabilities. If such information is present, then the following [facility] mandated warning applies: This information has been disclosed to you from confidential records which are protected by state law. State law prohibits you from making any further disclosure of this information without the specific written consent of the person to whom it pertains, or as otherwise permitted by law. Any unauthorized further disclosure in violation of state law may result in a fine or residential sentence or both. A general authorization for the release of medical or other information is NOT sufficient authorization for further disc losure. Family History Family Member Name Family Member Gender Family Member Status Date o f Status Description Data Source(s) Unknown Female Diagnosis 09/05/2016 12:00:00 AM EST [facility] ([facility]) Unknown Female Diagnosis 09/05/2016 12:00:00 AM EST [facility] ([facility]) Unknown Female Diagnosis 09/05/2016 12:00:00 AM EST [facility] ([facility]) Encounters Encounter Providers Location Date Indications Data Source(s ) Attender: Lauren Fountain MD [facility] 12:51:00 PM EST - 10/19/2020 12:51:00 PM EST [facility] ([facility]) OutpatientOFFICE VISIT, EST Post AB Attender: Marah Cook 10/18/2020 12:25:00 PM EST - 10/18/2020 12:25:00 PM ES T Other sex counselingHuman immunodeficiency virus [HIV] counselingEnctr srvlnc transdermal patch hormonal contraceptive deviceEncounter for oth general cnsl and advice on contraceptionEncounter for test, result negative [facility] ([facility]) Other sex counseling Human immunodeficiency virus [HIV] couns eling Enctr srvlnc transdermal patch hormonal contraceptive device Encounter for oth general cnsl and advic e on contraception Encounter for test, result neg ative Attender: Lauren Cook 10/2019 02:02:00 PM EST - 09/28/2020 02:02:00 PM EST [facility] ([facility]) Attender: Marah Meyer NP RESEARCH PROGRAM ASSISTANT MICHAEL Cook 1 11/20/2019 02:25:00 PM EST - 09/20/2020 02:25:00 PM EST Other sex counselingEnctr for init presc ription of patch hormonal contracep devEncounter for elective termination of pregnancyEncounter for test, result positive [facility] ([facility]) Other sex counseling Enctr for init prescription of patch hor monal contracep dev Encounter for elective termination of pr egnancy Encounter for test, result pos itive Attender: Marlen Cook 11:59:00 AM EST - 09/20/2020 11:59:00 AM EST [facility] ([facility]) Attender: Lauren Ca 1 11/16/2019 03:16:00 PM EST - 09/16/2020 03:16:00 PM EST [facility] ([facility]) Outpatient Attender: Anitha Flores NP [facility] 09/15/2020 01:38: 01 PM EST [facility] OutpatientOFFICE VISIT, EST Attender: Nayeli duran 09/15/2020 12:30:00 PM EST - 09/15/2020 12:30:00 PM EST Encounter for oth general cnsl and advice on contraceptionOther sex counselingEncntr screen for infections w sexl mode of transmissEncounter for test, result positive [facility] ([facility]) Encounter for oth general cnsl and advic e on contraception Other sex counseling Encntr screen for infections w sexl mode of transmiss Encounter for test, result pos itive Outpatient 04/23/2020 05:13:00 AM EDT [facility] Radiology Imaging Outpatient Attender: Taz Matson MD Physical Therapy 07/2020 02:30:00 PM EDT [facility] ([facility]) Medications Medication Brand Name Start Date Product Form Dose Route Admi nistrative Instructions Pharmacy Instructions Status Indications Reaction Description Data Source(s) 150-35 mcg/24 hr 09/21/2020 12:00:00 AM EST patch weekly 3 APPLY ONE PATCH TO THE SKIN ONCE WEEKLY FOR 3 WEEKS, THEN REMOVE FOR ONE WEEK APPLY ONE PATCH TO THE SKIN ONCE WEEKLY FOR 3 WEEKS, THEN REMOVE FOR ONE WEEK SOLD: 10/21/2020 [facility] 150-35 mcg/24 hr 09/21/2020 12:00:00 AM EST patch weekly 3 APPLY ONE PATCH TO THE SKIN ONCE WEEKLY FOR 3 WEEKS, THEN REMOVE FOR ONE WEEK APPLY ONE PATCH TO THE SKIN ONCE WEEKLY FOR 3 WEEKS, THEN REMOVE FOR ONE WEEK SOLD: 09/24/2020 [facility] 800 mg 09/21/2020 12:00:00 AM EST tablet 10 TAKE ONE TABLET BY MOUTH EVERY 8 HOURS NEEDED TAKE ONE TABLET BY MOUTH EVERY 8 HOURS NEEDED SOLD: 09/24/2020 [facility] 4 mg 09/21/2020 12:00:00 AM EST tablet 10 TAKE ONE TABLET BY MOUTH EVERY 4 HOURS NEEDED TAKE ONE TABLET BY MOUTH EVERY 4 HOURS NEEDED SOLD: 09/24/2020 [facility] Ondansetron 4 MG Oral Tablet ondansetron HCl 4 mg tabl et ondansetron HCl 4 mg tablet 09/20/2020 12:00:00 AM EST active 1 tab po every 4 hours prn (#4) [facility] ([facility]) Acetaminophen 300 MG / Codeine Phosphate 30 MG Oral Tablet acetaminophen 300 mg- codeine 30 mg tablet acetaminophen 300 mg-codeine 30 mg tablet 09/20/2020 12:00:00 AM EST completed 1-2 t abs po every 4 hours prn pain [facility] ([facility]) Medication administered onsite Acetaminophen 300 MG / Codeine Phosphate 30 MG Oral Tablet acetaminophen 300 mg- codeine 30 mg tablet acetaminophen 300 mg-codeine 30 mg tablet 09/20/2020 12:00:00 AM EST completed 1-2 t abs po every 4 hours prn pain [facility] ([facility]) 168 HR Ethinyl Estradiol 0.63288 MG/HR / norelgestromin 0.89143 MG/HR Transdermal Patch [Xulane] Xulane 150 mcg-35 mcg/24 hr transdermal patch Xulane 150 mcg-35 mcg/24 hr transdermal patch 09/20/2020 12:00:00 AM EST active 168 HR ethinyl estra diol 0.61521 MG/HR / norelgestromin 0.24985 MG/HR Transdermal System [Xulane] [facility] ([facility]) Ibuprofen 800 MG Oral Tablet ibuprofen 800 mg tablet ibuprof en 800 mg tablet 09/20/2020 12:00:00 AM EST active 1 tab po every 8 hours prn [facility] ([facility]) Misoprostol 0.2 MG Oral Tablet misoprostol 200 mcg tab let misoprostol 200 mcg tablet 09/20/2020 12:00:00 AM EST completed 4 tabs buccally 24-48 hrs after mifepristone (#4) [facility] ([facility]) 300-30 mg 09/20/2020 12:00:00 AM EST tablet 10 TAKE 1 TO 2 TALETS BY MOUTH EVERY 4 HOURS NEEDED FOR PAIN, MAXIMUM DAILY DOSE = TWELVE TABLETS TAKE 1 TO 2 TALETS BY MOUTH EVERY 4 HOURS NEEDED FOR PAIN, MAXIMUM DAILY DOSE = TWELVE TABLETS SOLD: 09/24/2020 [facility] Mifepristone 200 MG Oral Tablet [Mifeprex] Mifeprex 20 0 mg tablet Mifeprex 200 mg tablet 09/20/2020 12:00:00 AM EST complete d mifepristone 200 MG Oral Tablet [Mifeprex] [facility] ([facility]) 5-325 mg 04/08/2020 12:00:00 AM EDT tablet 12 TAKE ONE TABLET BY MOUTH EVERY 6 HOURS NEEDED FOR PAIN , MAXIMUM DAILY DOSE = 4 TABLETS TAKE ONE TABLET BY MOUTH EVERY 6 HOURS NEEDED FOR PAIN , MAXIMUM DAILY DOSE = 4 TABLETS SOLD: 04/08/2020 [facility] Acetaminophen 325 MG / Hydrocodone Bitartrate 5 MG Ora l Tablet Hydrocodone-Acetaminophen 04/08/2020 12:00:00 AM EDT ORAL active [facility] ([facility]) 300 mg 09/18/2019 12:00:00 AM EST capsule 20 TAKE ONE CAPSULE BY MOUTH EVERY 12 HOURS FOR 10 DAYS TAKE ONE CAPSULE BY MOUTH EVERY 12 HOURS FOR 10 DAYS S OLD: 09/20/2019 [facility] ALBUTEROL INHALER 90mcg/inh INHALATION SPRAY MD ALBUTEROL INHALER completed [facility] ([facility]) Insurance Providers Payer name Policy type / Coverage type Policy ID Covered democrat ID Covered democrat's relationship to logan Policy Loagn Plan Information [facility] COMM[facility] [id number] [place] [id number] [facility] Care [facility] Community Plan P [id number] S [id number] Medicaid S [id number] S [id number] [facility] O [id number] S [id number] Managed Care - Community Plan [facility] P [id number] S [id number] Managed Care - Community Plan [facility] P [id number] S [id number] [facility] COMM[facility]AN [facility] [id number] SP [id number] [facility] [id number] 18 [id number] MEDICAID [id number] SP [id number] Surgeries/Procedures Procedure Description Date Indications Data Source(s) CVR Elevator Repairer Apprentice.Svc. STI / H 10/18/2020 12:00:00 AM EST - 10/18/2020 12:00:00 AM EST [facility] ([facility]) CVR Elevator Repairer Apprentice.Svc. Other 10/18/2020 12:00:00 AM EST - 2019 12:00:00 AM EST [facility] ([facility]) CVR Elevator Repairer Apprentice.Svc. Contraceptive 10/18/2020 12 :00:00 AM EST - 10/18/2020 12:00:00 AM EST [facility] ([facility]) CVR Med.Svc. Height/Weight 10/18/2020 12 :00:00 AM EST - 10/18/2020 12:00:00 AM EST [facility] ([facility]) CVR Blood Pressure 10/18/2020 12:00:00 AM EST - 2019 12:00:00 AM EST [facility] ([facility]) CVR Med.Svc. Other 10/18/2020 12:00:00 AM EST - 2019 12:00:00 AM EST [facility] ([facility]) HCS Without Test 10/18/2020 12:00:00 AM EST - 10/18/20 20 12:00:00 AM EST [facility] ([facility]) OFFICE VISIT, EST Post AB 10/18/2020 12: 00:00 AM EST - 10/18/2020 12:00:00 AM EST [facility] ([facility]) URINE TEST 10/18/2020 12:00:00 AM EST - 10/18/2020 12:00:00 AM EST [facility] ([facility]) Est. Patient MAB Exp Prob Focused 2019 12:00:00 AM EST - 09/20/2020 12:00:00 AM EST [facility] ([facility]) CVR Elevator Repairer Apprentice.Svc. Contraceptive 09/20/2020 12 :00:00 AM EST - 09/20/2020 12:00:00 AM EST [facility] ([facility]) CVR Med.Svc. Height/Weight 09/20/2020 12 :00:00 AM EST - 09/20/2020 12:00:00 AM EST [facility] ([facility]) CVR Blood Pressure 09/20/2020 12:00:00 AM EST - 2019 12:00:00 AM EST [facility] ([facility]) Misoprostol, oral, 200 mcg 4 Tabs MAB 12:00:00 AM EST - 09/20/2020 12:00:00 AM EST [facility] ([facility]) Mifeprex, oral, 200 mg 09/20/2020 12:00: 00 AM EST - 09/20/2020 12:00:00 AM EST [facility] ([facility]) CAPILLARY BLOOD DRAW 09/20/2020 12:00:00 AM EST - 09/20/2020 12:00:00 AM EST [facility] ([facility]) HEMOGLOBIN 09/20/2020 12:00:00 AM EST - 09/20/2020 1 2:00:00 AM EST [facility] ([facility]) URINE TEST 09/20/2020 12:00:00 AM EST - 09/20/2020 12:00:00 AM EST [facility] ([facility]) CVR Elevator Repairer Apprentice.Svc. STI / H 09/15/2020 12:00:00 AM EST - 09/15/2020 12:00:00 AM EST [facility] ([facility]) CVR Elevator Repairer Apprentice.Svc. Other 09/15/2020 12:00:00 AM EST - 2019 12:00:00 AM EST [facility] ([facility]) CVR Elevator Repairer Apprentice.Svc. Contraceptive 09/15/2020 12 :00:00 AM EST - 09/15/2020 12:00:00 AM EST [facility] ([facility]) CVR Med.Svc. Height/Weight 09/15/2020 12 :00:00 AM EST - 09/15/2020 12:00:00 AM EST [facility] ([facility]) CVR Blood Pressure 09/15/2020 12:00:00 AM EST - 2019 12:00:00 AM EST [facility] ([facility]) N.GONORRHOEAE, URINE 09/15/2020 12:00:00 AM EST - 09/15/2020 12:00:00 AM EST [facility] ([facility]) CHYLMD TRACH, URINE 09/15/2020 12:00:00 AM EST - 09/15 12:00:00 AM EST [facility] ([facility]) OFFICE VISIT, EST 09/15/2020 12:00:00 AM EST - 020 12:00:00 AM EST [facility] ([facility]) URINE TEST 09/15/2020 12:00:00 AM EST - 09/15/2020 12:00:00 AM EST [facility] ([facility]) CLOSED TX RADIAL HEAD/NECK FX W/O MANIPULATION 020 12:00:00 AM EDT [facility] ([facility]) Results ID Date Data Source [id number] 10/18/2020 12:53:04 PM EST [facility] ([facility]) Name Value Range Interpretation Code Description Data Monse rce(s) Supporting Document(s) NegativeLot: [id number]: 12/26/2021 High Sensitivity Urine Test [facility] ([facility]) ID Date Data Source [id number] 09/20/2020 03:22:02 PM EST [facility] ([facility]) Name Value Range Interpretation Code Description Data Monse rce(s) Supporting Document(s) 11.70 gm/dL Hemoglobin [facility] ID Date Data Source [id number] 09/20/2020 03:18:25 PM EST [facility] ([facility]) Name Value Range Interpretation Code Description Data Monse rce(s) Supporting Document(s) PositiveLot: [id number]: 12/26/2021 Abnormal (applies to non-numeric results) [facility] ID Date Data Source [id number] 09/15/2020 01:02:11 PM EST [facility] ([facility]) Name Value Range Interpretation Code Description Data Monse rce(s) Supporting Document(s) Positive Abnormal (applies to non-num stephanie results) High Sensitivity Urine Test [facility] ([facility]) ID Date Data Source [id number] 09/15/2020 12:00:00 AM EST [facility] ([facility]) Name Value Range Interpretation Code Description Data Monse rce(s) Supporting Document(s) Negative Normal (applies to non-numeric resul ts) Urine CT/GC Combo - GC [facility] ([facility]) : Yes Performed by: CARLY ([id number]) ID Date Data Source [id number] 09/15/2020 12:00:00 AM EST [facility] ([facility]) Name Value Range Interpretation Code Description Data Monse rce(s) Supporting Document(s) Negative Normal (applies to non-numeric resul ts) Urine CT/GC Combo - CT [facility] ([facility]) Procedure Social History Code Duration Value Status Description Data Source(s ) Smoking 10/19/2020 12:00:00 AM EST Heavy tobacco smoker comple isaiah Heavy tobacco smoker [facility] ([facility]) 10/18/2020 12:00:00 AM EST Moderate cigarette sm oker (10-19 cigs/day) completed Moderate cigarette smoker (10-19 cigs/day) [facility] Vital Signs ID Date Data Source UNK Name Value Range Interpretation Code Description Data Source(s) Body mass index (BMI) [Ratio] 21.93 kg/m2 21.93 kg/m2 [facility] ([facility]) Body weight 53.524 kg 53.524 kg [facility] [place]) Body height 156.21 cm 156.21 cm [facility] ([facility] Body mass index (BMI) [Ratio] 22.64 kg/m2 22.64 kg/m2 [facility] ([facility]) Diastolic blood pressure 77 mm[Hg] 77 mm[Hg] [facility] ([facility] [place] Systolic blood pressure 118 mm[Hg] 118 mm[Hg] N [facility] ([facility]) Body weight 55.248 kg 55.248 kg [facility] ([facility]) Body height 156.21 cm 156.21 cm [facility] ([facility]) Body mass index (BMI) [Ratio] 23.16 kg/m2 23.16 kg/m2 [facility] ([facility]) Diastolic blood pressure 70 mm[Hg] 70 mm[Hg] [facility] ([facility] [place] Systolic blood pressure 118 mm[Hg] 118 mm[Hg] N [facility] ([facility]) Body weight 56.518 kg 56.518 kg [facility] ([facility]) Body height 156.21 cm 156.21 cm [facility] ([facility]) Patient Treatment Plan of Care Planned Activity Planned Date Details Description Data Source (s) Acetaminophen 300 MG / Codeine Phosphate 30 MG Oral Ta blet 09/20/2020 12:00:00 AM EST [facility] ([facility] 168 HR Ethinyl Estradiol 0.09554 MG/HR / norelgestromin 0.77430 MG/HR Transdermal Patch [Xulane] 09/20/2020 12:00:00 AM EST [facility] ([facility]) Acetaminophen 300 MG / Codeine Phosphate 30 MG Oral Ta blet 09/20/2020 12:00:00 AM EST [facility] ([facility]) Misoprostol 0.2 MG Oral Tablet 09/20/2020 12:00:00 AM EST [facility] ([facility]) Mifepristone 200 MG Oral Tablet [Mifeprex] 09/20/2020 12:00:[address] [facility] ([facility]) Ondansetron 4 MG Oral Tablet 09/20/2020 12:00:00 AM EST [facility] ([facility]) Ibuprofen 800 MG Oral Tablet 09/20/2020 12:00:00 AM EST [facility] ([facility]) ALBUTEROL INHALER 90mcg/inh INHALATION SPRAY [facility] ([facility])
--- NOTE | 2020-11-14 19:59 | REPVR ---
PROCEDURE INFORMATION: Exam: CT Head Without Contrast Exam date and time: 11/14/2020 7:16 PM Age: 24 years old Clinical indication: Pain; Headache; Additional info: Altered mental status TECHNIQUE: Imaging protocol: Computed tomography of the head without contrast. Radiation optimization: All CT scans at this facility use at least one of these dose optimization techniques: automated exposure control; mA and/or kV adjustment per patient size (includes targeted exams where dose is matched to clinical indication); or iterative reconstruction. COMPARISON: No relevant prior studies available. FINDINGS: Brain: There is no CT evidence for an acute large vessel territorial infarct. No acute intracranial hemorrhage is seen. No mass, mass effect, midline shift, or herniation is noted. The cortical gyration pattern, basal ganglia, thalami, brainstem, and cerebellum are normal in appearance. Cerebral ventricles: Normal. No hydrocephalus. Bones/joints: The skull is intact. No suspicious osteolytic or osteoblastic lesion. Paranasal sinuses: The imaged portions of the sinuses are well-aerated. No air-fluid levels are noted in the sinuses. Mastoid air cells: Clear. Soft tissues: Unremarkable. No soft tissue fluid collection. IMPRESSION: No acute intracranial abnormality. Electronically signed by: Rinku Feliciano On 11/14/2020 19:58:44 PM
[2020-11-14 20:15] LABS: AMPHETAMINES LEVEL URINE NEGATIVE (NEGATIVE); BARBITURATES URINE NEGATIVE (NEGATIVE); BENZODIAZEPINES URINE POSITIVE (NEGATIVE); CANNABINOIDS URINE POSITIVE (NEGATIVE); COCAINE METABOLITE URINE NEGATIVE (NEGATIVE); METHADONE URINE NEGATIVE (NEGATIVE); OPIATES URINE NEGATIVE (NEGATIVE); PHENCYCLIDINE URINE NEGATIVE (NEGATIVE)
[2020-11-14 21:15] VITALS: BP 114/65
--- NOTE | 2020-11-15 09:12 | ECGEPIP ---
[facility] - ED Test Date: 2020-11-14 Pat Name: RACHEL QUEEN Department: Room: - Gender: Female Information Consultant: ANGELA : 1995 Requested By: ISH GUTIÉRREZ Order Number: [id number] Reading MD: Candida Jimenez Measurements Intervals [place] Rate: 56 P: 10 MD: 147 QRS: 56 QRSD: 79 T: 31 QT: 444 QTc: 431 Interpretive Statements SINUS BRADYCARDIA No prior Electronically Signed on 11-15-2020 9:12:35 EST by Candida Jimenez
== END 2020-11-14 21:17 | disposition home or self-care (01) ==
LOC: M ED 18:13 → EDBD 18:13 → M ED 21:17
DX: R56.9 Unspecified convulsions (principal); R00.1 Bradycardia, unspecified; F17.200 Nicotine dependence, unspecified, uncomplicated; Z86.69 Personal history of other diseases of the nervous system and sense organs; Z88.5 Allergy status to narcotic agent
CPT/HCPCS: 70450; 71045; 80048; 80076; 80307; 81001; 83605; 83735; 84443; 85025; 93005; 93041; 94760; 99284; G0480

== ENCOUNTER 2022-03-28 15:04 | Emergency (ER) | payer OTHER ==
[~2022-03-28] VITALS: Ht 154.9 cm; Wt 58.3 kg
[~2022-03-28 15:04] MED LIST changes: +ALBU2.5V10 INH; -ALBU83IN INH
[2022-03-28] MEDS ORDERED: LIDOCAINE 5% (LIDODERM) PATCH TD ONE (19:00)
[2022-03-28] MEDS ORDERED: NAPROXEN 250 MG TAB PO ONE (19:00)
[2022-03-28] MEDS ORDERED: diazePAM 10 MG TAB PO ONE (19:00)
[2022-03-28] MEDS ORDERED: **NOTE PATIENT COMMENT** MISC XX SCH (21:00)
[2022-03-28] MEDS ORDERED: PERCOCET 5MG/325MG TAB PO ONE (21:10)
[2022-03-28] MEDS ORDERED: predniSONE 20 MG TAB PO ONE (21:10)
[2022-03-28] MEDS ORDERED: ASPE4PAD TOP (21:49)
[2022-03-28] MEDS ORDERED: METH-1165 PO (21:49)
[2022-03-28] MEDS ORDERED: TRAM50TA2 PO (21:49)
[2022-03-28] MEDS ORDERED: NAPR-837 PO (21:49)
[2022-03-28] MEDS ORDERED: PRED20TA PO (21:51)
[2022-03-28] MEDS ORDERED: OXYCODONE/APAP 5MG/325MG(BULK FOR ED) 1 TABLET PO ONE (21:55)
[2022-03-28 21:57] VITALS: BP 125/80
== END 2022-03-28 22:11 | disposition home or self-care (01) ==
LOC: M ED 15:04
DX: M51.27 Other intervertebral disc displacement, lumbosacral region (principal); G40.909 Epilepsy, unspecified, not intractable, without status epilepticus; F17.200 Nicotine dependence, unspecified, uncomplicated; Z88.5 Allergy status to narcotic agent
CPT/HCPCS: 72131; 84702; 99283; J7512

== ENCOUNTER → 2024-01-16 | Outpatient (REF) | payer OTHER ==
[~2024-01-16] MED LIST changes: +ASPE4PAD TOP; +METH-1165 PO; +NAPR-837 PO; +TRAM50TA2 PO
== END ==
LOC: M LAB REF 16:01
PROVIDERS: ATTEND Physician Assistant
DX: J02.9 Acute pharyngitis, unspecified (principal)

== ENCOUNTER 2025-06-19 02:11 | Emergency (ER) | payer OTHER ==
[~2025-06-19] VITALS: Ht 154.9 cm; Wt 54.2 kg
[~2025-06-19 02:11] MED LIST changes: +FLUO-365; -FLUO20CA22
[2025-06-19 07:11] VITALS: BP 132/89; TEMP 97.3; O2SAT 100
== END 2025-06-19 07:14 | disposition home or self-care (01) ==
LOC: M ED 02:11
DX: T16.1XXA Foreign body in right ear, initial encounter (principal); Z79.899 Other long term (current) drug therapy; Z88.5 Allergy status to narcotic agent